=== PATIENT | male | born 1975 | race Caucasian/White ===

== ENCOUNTER 2017-09-05 18:01 | Inpatient (IN) | payer OTHER ==
[2017-09-05 18:46] VITALS: BMI 23.8
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
[2017-09-05] MEDS ORDERED: P-EPHED 60MG/TRIPROLIDI 2.5MG TABLET PO PRN (20:14)
[2017-09-05] MEDS ORDERED: LOPERAMIDE HCL 2 MG CAPSULE PO PRN (20:14)
[2017-09-05] MEDS ORDERED: NICOTINE POLACRILEX 2 MG GUM BUC PRN (20:14)
[2017-09-05] MEDS ORDERED: MAGNESIUM CITRATE 300 ML BOTTLE PO PRN (20:14)
[2017-09-05] MEDS ORDERED: ACETAMINOPHEN 325 MG TABLET (FP) PO PRN (20:14)
[2017-09-05] MEDS ORDERED: MAG HYDROX/AL HYDROX/SIMETH 30 ML UNIT-DOSE CUP PO PRN (20:14)
[2017-09-05] MEDS ORDERED: hydrOXYzine PAMOATE 50 MG CAPSULE (FP) PO PRN (20:14)
[2017-09-05] MEDS ORDERED: IBUPROFEN 400 MG TABLET (FP) PO PRN (20:14)
[2017-09-05] MEDS ORDERED: guaiFENesin/D-METHORPHAN HB 10 ML UNIT-DOSE CUPS PO PRN (20:14)
[2017-09-05] MEDS ORDERED: MAGNESIUM HYDROX 2400MG/30ML ORAL SUSPENSION 30 ML CUP PO PRN (20:14)
[2017-09-05] MEDS ORDERED: MENTHOL/PHENOL 1 EACH UD MM PRN (20:14)
[2017-09-05] MEDS ORDERED: chlordiazePOXIDE HCL 25 MG CAPSULE PO ONE (20:45)
[2017-09-05] MEDS ORDERED: METHADONE HCL 10 MG TABLET (FOR DETOX USE ONLY) PO ONE ×2 (20:45→23:00)
[2017-09-05] MEDS ORDERED: MELATONIN 5 MG TABLETS PO PRN (22:00)
[2017-09-06] MEDS ORDERED: METHADONE HCL 10 MG TABLET (FOR DETOX USE ONLY) PO ONE ×3 (01:27→23:00)
[2017-09-06] MEDS: THIAMINE HCL 100 MG TABLET (FP) PO SCH ×2 (01:36→22:05)
[2017-09-06] MEDS: levETIRAcetam 500 MG TABLET (FP) PO SCH ×3 (01:36→22:06)
[2017-09-06] MEDS: chlordiazePOXIDE HCL 25 MG CAPSULE PO SCH ×5 (01:37→22:06)
[2017-09-06] MEDS: chlordiazePOXIDE HCL 25 MG CAPSULE PO PRN (01:44)
--- NOTE | 2017-09-06 09:38 | EKG ---
Test Reason : Blood Pressure : / mmHG Vent. Rate : 057 BPM Atrial Rate : 057 BPM P-R Int : 152 ms QRS Dur : 094 ms QT Int : 480 ms P-R-T Axes : 071 086 065 degrees QTc Int : 467 ms SINUS BRADYCARDIA WITH SINUS ARRHYTHMIA OTHERWISE NORMAL ECG NO PREVIOUS ECGS AVAILABLE Confirmed by MACKENZIE MEDRANO, LISANDRO ([id number]) on 09/06/2017 9:38:34 AM Referred By: Confirmed By:LISANDRO MANN MD
[2017-09-06 09:57] LABS: CHLORIDE 105 mmol/L (98-107); POTASSIUM 4.3 mmol/L (3.5-5.1); SODIUM 142 mmol/L (136-145)
[2017-09-06] MEDS ORDERED: METHADONE HCL 10 MG TABLET (FOR DETOX USE ONLY) PO SCH (10:00)
[2017-09-06 10:16] LABS: HEMATOCRIT 38.3 % (35.4-49); HEMOGLOBIN 13.2 GM/dL (11.7-16.9); MCH 31.2 pg (25.7-33.7); MCHC 34.5 g/dl (32.0-35.9); MEAN CELL VOLUME 90.6 fl (80-96); PLATELET COUNT 195 K/MM3 (134-434); RBC 4.22 M/mm3 (4.00-5.60); RDW 12.7 % (11.9-15.9); WHITE BLOOD COUNT 4.4 K/mm3 (4.0-10.0)
[2017-09-06] MEDS: PRENATAL VITAMINS W/ FOLIC ACID TABLET (FP) PO SCH (10:20)
[2017-09-06] MEDS: NICOTINE 14 MG/24 HOURS TOPICAL PATCH TD SCH (10:21)
--- NOTE | 2017-09-06 10:47 | PN ---
S CIWA - CIWA Score Nausea/Vomitin-No Nausea/No Vomiting Muscle Tremors: 4-Moderate,w/Arms Extend Anxiety: 4-Mod. Anxious/Guarded Agitation: 4-Moderately Restless Paroxysmal Sweats: 1-Minimal Palms Moist Orientation: 0-Oriented Tacttile Disturbances: 0-None Auditory Disturbances: 0-None Visual Disturbances: 0-None Headache: 0-None Present CIWA-Ar Total Score: 13 [facility]HS COWS - Scale Resting Pulse: 0= [place] 80 or Below Sweatin= Chills/Flushing Restless Observation: 3= Extraneous Movement Pupil Size: 2= Moderately Dilated Bone or Joint Aches: 4=Acute Joint/Muscle Pain Runny Nose/ Eye Tearin= None GI Upset > 30mins: 0= None Tremor Observation of Outstretched Hands: 1= Tremor [place], Not Seen Yawning Observation: 1= 1-2x During Session Anxiety or Irritability: 2=Irritable/Anxious Goose Flesh Skin: 0=Smooth Skin COWS Score: 14 S Progress Note (SOAP) Subjective: ANXIETY,CHILLS,SWEATS,FATIGUE AND SLEEPY. Objective: 09/06/17 10:43 Vital Signs 09/06/17 09/06/17 09/06/17 03:30 06:30 06:37 Temperature 98.0 F Pulse Rate 47 L Respiratory 18 18 18 Rate Blood Pressure 106/57 09/06/17 09:17 Temperature 96.3 F L Pulse Rate 54 L Respiratory 18 Rate Blood Pressure 112/68 Laboratory Tests 09/06/17 09/06/17 06:40 06:40 WBC 4.4 D RBC 4.22 Hgb 13.2 D Hct 38.3 D MCV 90.6 MCH 31.2 MCHC 34.5 RDW 12.7 Plt Count 195 MPV 8.0 D Sodium 142 Potassium 4.3 Chloride 105 OTHER LABS PENDING Assessment: 09/06/17 10:43 WITHDRAWAL SX Plan: CONTINUE DETOX INCREASE PO FLUIDS.
[2017-09-06 10:53] LABS: ALK PHOS 74 U/L (45-117); ANION GAP 8 (8-16); BILIRUBIN,TOTAL 0.3 mg/dL (0.2-1.0); BLOOD UREA NITROGEN 16 mg/dL (7-18); CALCIUM 8.4 mg/dL (8.5-10.1); CO2 29 mmol/L (21-32); CREATININE 0.9 mg/dL (0.7-1.3); GLUCOSE,RANDOM 92 mg/dL (74-106); SGOT/AST 24 U/L (15-37); SGPT/ALT 58 U/L (12-78); TOT PROT 6.1 g/dl (6.4-8.2)
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
[2017-09-06 14:31] LABS: URINE APPEARANCE CLEAR; URINE BILIRUBIN NEGATIVE (<2.0 mg/dL); URINE COLOR YELLOW; URINE GLUCOSE (UA) NEGATIVE (NEGATIVE); URINE KETONE NEGATIVE (NEGATIVE); URINE LEUK ESTERASE NEGATIVE (NEGATIVE); URINE NITRITE NEGATIVE (NEGATIVE); URINE PROTEIN NEGATIVE (NEGATIVE); URINE UROBILINOGEN 4.0 E.U/dl mg/dL (0.2-1.0)
[2017-09-06] MEDS: QUEtiapine FUMARATE 50 MG TABLET PO SCH (22:06)
[2017-09-07] MEDS: chlordiazePOXIDE HCL 25 MG CAPSULE PO SCH ×3 (09:52→17:55)
[2017-09-07] MEDS ORDERED: METHADONE HCL 10 MG TABLET (FOR DETOX USE ONLY) PO ONE (10:00)
[2017-09-07] MEDS ORDERED: METHADONE HCL 5 MG TABLET (FOR DETOX USE ONLY) PO SCH (10:00)
[2017-09-07] MEDS: levETIRAcetam 500 MG TABLET (FP) PO SCH ×2 (10:12→22:14)
[2017-09-07] MEDS: PRENATAL VITAMINS W/ FOLIC ACID TABLET (FP) PO SCH (10:12)
[2017-09-07] MEDS: NICOTINE 14 MG/24 HOURS TOPICAL PATCH TD SCH (10:14)
--- NOTE | 2017-09-07 10:57 | PN ---
[facility] CIWA - CIWA Score Nausea/Vomitin-No Nausea/No Vomiting Muscle Tremors: 3 Anxiety: 4-Mod. Anxious/Guarded Agitation: 4-Moderately Restless Paroxysmal Sweats: 1-Minimal Palms Moist Orientation: 0-Oriented Tacttile Disturbances: 0-None Auditory Disturbances: 0-None Visual Disturbances: 0-None Headache: 0-None Present CIWA-Ar Total Score: 12 S COWS - Scale Resting Pulse: 0= [place] 80 or Below Sweatin= Chills/Flushing Restless Observation: 3= Extraneous Movement Pupil Size: 2= Moderately Dilated Bone or Joint Aches: 1= Mild Discomfort Runny Nose/ Eye Tearin= None GI Upset > 30mins: 0= None Tremor Observation of Outstretched Hands: 1= Tremor [place], Not Seen Yawning Observation: 1= 1-2x During Session Anxiety or Irritability: 2=Irritable/Anxious Goose Flesh Skin: 0=Smooth Skin COWS Score: 11 S Progress Note (SOAP) Subjective: ANXIETY,HOT/COLD FLASHES. Objective: 09/07/17 10:56 Vital Signs 09/07/17 09:17 Temperature 98.9 F Pulse Rate 54 L Respiratory 18 Rate Blood Pressure 109/64 Laboratory Tests 09/06/17 09/06/17 09/06/17 06:40 06:40 06:40 WBC 4.4 D RBC 4.22 Hgb 13.2 D Hct 38.3 D MCV 90.6 MCH 31.2 MCHC 34.5 RDW 12.7 Plt Count 195 MPV 8.0 D Sodium 142 Potassium 4.3 Chloride 105 Carbon Dioxide 29 Anion Gap 8 BUN 16 Creatinine 0.9 Creat Clearance w eGFR > 60 Random Glucose 92 Calcium 8.4 L Total Bilirubin 0.3 D AST 24 ALT 58 D Alkaline Phosphatase 74 Total Protein 6.1 L Albumin 3.0 L Urine Color Urine Appearance Urine pH Ur Specific [place] Urine Protein Urine Glucose (UA) Urine Ketones Urine Blood Urine Nitrite Urine Bilirubin Urine Urobilinogen Ur Leukocyte Esterase RPR Titer Nonreactive HIV 1&2 Antibody Screen HIV P24 Antigen 09/06/17 09/06/17 09:00 13:20 WBC RBC Hgb Hct MCV MCH MCHC RDW Plt Count MPV Sodium Potassium Chloride Carbon Dioxide Anion Gap BUN Creatinine Creat Clearance w eGFR Random Glucose Calcium Total Bilirubin AST ALT Alkaline Phosphatase Total Protein Albumin Urine Color Yellow Urine Appearance Clear Urine pH 7.0 Ur Specific [place] 1.024 Urine Protein Negative Urine Glucose (UA) Negative Urine Ketones Negative Urine Blood Negative Urine Nitrite Negative Urine Bilirubin Negative Urine Urobilinogen 4.0 e.u/dl Ur Leukocyte Esterase Negative RPR Titer HIV 1&2 Antibody Screen Negative HIV P24 Antigen Negative Assessment: 09/07/17 10:56 WITHDRAWAL SX Plan: CONTINUE DETOX INCREASE PO FLUIDS.
[2017-09-07] MEDS: THIAMINE HCL 100 MG TABLET (FP) PO SCH (22:13)
[2017-09-07] MEDS: chlordiazePOXIDE 5 MG CAPSULE PO SCH (22:13)
[2017-09-07] MEDS: QUEtiapine FUMARATE 50 MG TABLET PO SCH (22:14)
[2017-09-08] MEDS: chlordiazePOXIDE 5 MG CAPSULE PO SCH ×3 (05:41→17:16)
[2017-09-08] MEDS ORDERED: METHADONE HCL 5 MG TABLET (FOR DETOX USE ONLY) PO ONE (10:00)
[2017-09-08] MEDS: PRENATAL VITAMINS W/ FOLIC ACID TABLET (FP) PO SCH (10:31)
[2017-09-08] MEDS: levETIRAcetam 500 MG TABLET (FP) PO SCH ×2 (10:32→21:55)
[2017-09-08] MEDS: NICOTINE 14 MG/24 HOURS TOPICAL PATCH TD SCH (10:33)
--- NOTE | 2017-09-08 13:51 | PN ---
[facility] Progress Note (SOAP) Subjective: Body Aches, Anxious, Fatigue. Objective: PATIENT A & O X 2 (UNCERTAIN ABOUT CURRENT DAY / DATE). PATIENT OBSERVED AMBULATING ON UNIT. NO ACUTE DISTRESS. 09/08/17 13:49 Vital Signs Temperature 97.6 F 09/08/17 09:25 Pulse Rate 63 09/08/17 09:25 Respiratory Rate 16 09/08/17 09:25 Blood Pressure 110/63 09/08/17 09:25 O2 Sat by Pulse Oximetry (%) Laboratory Tests 09/06/17 09/06/17 09/06/17 06:40 06:40 06:40 WBC 4.4 D RBC 4.22 Hgb 13.2 D Hct 38.3 D MCV 90.6 MCH 31.2 MCHC 34.5 RDW 12.7 Plt Count 195 MPV 8.0 D Sodium 142 Potassium 4.3 Chloride 105 Carbon Dioxide 29 Anion Gap 8 BUN 16 Creatinine 0.9 Creat Clearance w eGFR > 60 Random Glucose 92 Calcium 8.4 L Total Bilirubin 0.3 D AST 24 ALT 58 D Alkaline Phosphatase 74 Total Protein 6.1 L Albumin 3.0 L Urine Color Urine Appearance Urine pH Ur Specific [place] Urine Protein Urine Glucose (UA) Urine Ketones Urine Blood Urine Nitrite Urine Bilirubin Urine Urobilinogen Ur Leukocyte Esterase RPR Titer Nonreactive HIV 1&2 Antibody Screen HIV P24 Antigen 09/06/17 09/06/17 09:00 13:20 WBC RBC Hgb Hct MCV MCH MCHC RDW Plt Count MPV Sodium Potassium Chloride Carbon Dioxide Anion Gap BUN Creatinine Creat Clearance w eGFR Random Glucose Calcium Total Bilirubin AST ALT Alkaline Phosphatase Total Protein Albumin Urine Color Yellow Urine Appearance Clear Urine pH 7.0 Ur Specific [place] 1.024 Urine Protein Negative Urine Glucose (UA) Negative Urine Ketones Negative Urine Blood Negative Urine Nitrite Negative Urine Bilirubin Negative Urine Urobilinogen 4.0 e.u/dl Ur Leukocyte Esterase Negative RPR Titer HIV 1&2 Antibody Screen Negative HIV P24 Antigen Negative LABS NOTED. Assessment: 09/08/17 13:49 WITHDRAWAL SYMPTOMS. Plan: CONTINUE DETOX. CONTINUE DAILY PO FLUID INTAKE.
[2017-09-08] MEDS: chlordiazePOXIDE HCL 25 MG CAPSULE PO PRN (14:12)
--- NOTE | 2017-09-08 18:07 | PN ---
[facility] Progress Note Note: Psychiatry Attending's note : Approached by patient. Reason : complaint of insomnia. " I would like to be on 100 mg of seroquel." Mr Thompson reports dose of 50 mg as not effective. Endorses history of good response on 100 mg at bedtime. Intervention : Sleep hygiene discussed with the patient. Seroquel is raised to 100 mg po hs. Side effects/benefits revisited. Patient agrees with careplan. Stable mental status.
[2017-09-08] MEDS: chlordiazePOXIDE HCL 10 MG CAPSULE PO SCH (21:59)
[2017-09-08] MEDS ORDERED: QUEtiapine FUMARATE 100 MG TABLET (FP) PO SCH (22:00)
[2017-09-08] MEDS: THIAMINE HCL 100 MG TABLET (FP) PO SCH (22:43)
[2017-09-09] MEDS: chlordiazePOXIDE HCL 10 MG CAPSULE PO SCH ×2 (06:45→10:24)
[2017-09-09 09:37] VITALS: BP 113/80; PULSE 85; TEMP 97
[2017-09-09] MEDS ORDERED: METHADONE HCL 10 MG TABLET (FOR DETOX USE ONLY) PO SCH (10:00)
[2017-09-09] MEDS ORDERED: METHADONE HCL 5 MG TABLET (FOR DETOX USE ONLY) PO ONE (10:00)
[2017-09-09] MEDS: PRENATAL VITAMINS W/ FOLIC ACID TABLET (FP) PO SCH (10:22)
[2017-09-09] MEDS: levETIRAcetam 500 MG TABLET (FP) PO SCH (10:23)
[2017-09-09] MEDS: NICOTINE 14 MG/24 HOURS TOPICAL PATCH TD SCH (10:24)
--- NOTE | 2017-09-09 14:19 | PN ---
[facility] Progress Note (SOAP) Subjective: Fatigue, Anxious, Body Aches. Objective: PATIENT A & O X 3, OBSERVED AMBULATING ON UNIT. NO ACUTE DISTRESS. 09/09/17 14:18 Vital Signs Temperature 97 F L 09/09/17 09:36 Pulse Rate 85 09/09/17 09:36 Respiratory Rate 18 09/09/17 09:36 Blood Pressure 113/80 09/09/17 09:36 O2 Sat by Pulse Oximetry (%) Laboratory Tests 09/06/17 09/06/17 09/06/17 06:40 06:40 06:40 WBC 4.4 D RBC 4.22 Hgb 13.2 D Hct 38.3 D MCV 90.6 MCH 31.2 MCHC 34.5 RDW 12.7 Plt Count 195 MPV 8.0 D Sodium 142 Potassium 4.3 Chloride 105 Carbon Dioxide 29 Anion Gap 8 BUN 16 Creatinine 0.9 Creat Clearance w eGFR > 60 Random Glucose 92 Calcium 8.4 L Total Bilirubin 0.3 D AST 24 ALT 58 D Alkaline Phosphatase 74 Total Protein 6.1 L Albumin 3.0 L Urine Color Urine Appearance Urine pH Ur Specific [place] Urine Protein Urine Glucose (UA) Urine Ketones Urine Blood Urine Nitrite Urine Bilirubin Urine Urobilinogen Ur Leukocyte Esterase Levetiracetam RPR Titer Nonreactive HIV 1&2 Antibody Screen HIV P24 Antigen 09/06/17 09/06/17 09/06/17 08:20 09:00 13:20 WBC RBC Hgb Hct MCV MCH MCHC RDW Plt Count MPV Sodium Potassium Chloride Carbon Dioxide Anion Gap BUN Creatinine Creat Clearance w eGFR Random Glucose Calcium Total Bilirubin AST ALT Alkaline Phosphatase Total Protein Albumin Urine Color Yellow Urine Appearance Clear Urine pH 7.0 Ur Specific [place] 1.024 Urine Protein Negative Urine Glucose (UA) Negative Urine Ketones Negative Urine Blood Negative Urine Nitrite Negative Urine Bilirubin Negative Urine Urobilinogen 4.0 e.u/dl Ur Leukocyte Esterase Negative Levetiracetam None detected RPR Titer HIV 1&2 Antibody Screen Negative HIV P24 Antigen Negative LABS NOTED. Assessment: 09/09/17 14:18 WITHDRAWAL SYMPTOMS. Plan: CONTINUE DETOX.
--- NOTE | 2017-09-09 14:23 | DS ---
[facility] Detox Discharge Summary Admission Date: 09/05/17 Discharge Date: 09/09/17 - History Present History: Alcohol Dependence, Cocaine Dependence, Opioid Dependence Additional Comments: PATIENT DOES NOT WISH TO STAY TO COMPLETE DETOX REGIMEN. RISKS OF LEAVING DETOX UNIT AGAINST MEDICAL ADVICE AND PRIOR TO COMPLETION OF DETOX REGIMEN EXPLAINED TO PATIENT. PATIENT ADVISED TO GO IMMEDIATELY TO NEAREST ER SHOULD ANY INTOLERABLE DETOX SYMPTOMS DEVELOP AT ANY TIME. PATIENT LEFT DETOX UNIT IN STABLE MEDICAL CONDITION. Pertinent Past History: Depression, Nicotine Dependence, Hep C, History of Seizures, History of Suboxone Maintenance Therapy, Weight Loss, Dehydration, PTSD, Insomnia. - Physical Exam Results Vital Signs: Vital Signs Temperature 97 F L 09/09/17 09:36 Pulse Rate 85 09/09/17 09:36 Respiratory Rate 18 09/09/17 09:36 Blood Pressure 113/80 09/09/17 09:36 O2 Sat by Pulse Oximetry (%) Pertinent Admission Physical Exam Findings: WITHDRAWAL SYMPTOMS. Laboratory Tests 09/06/17 09/06/17 09/06/17 06:40 06:40 06:40 WBC 4.4 D RBC 4.22 Hgb 13.2 D Hct 38.3 D MCV 90.6 MCH 31.2 MCHC 34.5 RDW 12.7 Plt Count 195 MPV 8.0 D Sodium 142 Potassium 4.3 Chloride 105 Carbon Dioxide 29 Anion Gap 8 BUN 16 Creatinine 0.9 Creat Clearance w eGFR > 60 Random Glucose 92 Calcium 8.4 L Total Bilirubin 0.3 D AST 24 ALT 58 D Alkaline Phosphatase 74 Total Protein 6.1 L Albumin 3.0 L Urine Color Urine Appearance Urine pH Ur Specific [place] Urine Protein Urine Glucose (UA) Urine Ketones Urine Blood Urine Nitrite Urine Bilirubin Urine Urobilinogen Ur Leukocyte Esterase Levetiracetam RPR Titer Nonreactive HIV 1&2 Antibody Screen HIV P24 Antigen 09/06/17 09/06/17 09/06/17 08:20 09:00 13:20 WBC RBC Hgb Hct MCV MCH MCHC RDW Plt Count MPV Sodium Potassium Chloride Carbon Dioxide Anion Gap BUN Creatinine Creat Clearance w eGFR Random Glucose Calcium Total Bilirubin AST ALT Alkaline Phosphatase Total Protein Albumin Urine Color Yellow Urine Appearance Clear Urine pH 7.0 Ur Specific [place] 1.024 Urine Protein Negative Urine Glucose (UA) Negative Urine Ketones Negative Urine Blood Negative Urine Nitrite Negative Urine Bilirubin Negative Urine Urobilinogen 4.0 e.u/dl Ur Leukocyte Esterase Negative Levetiracetam None detected RPR Titer HIV 1&2 Antibody Screen Negative HIV P24 Antigen Negative LABS NOTED. - Treatment Hospital Course: Detoxed Safely - Medication Discharge Medications: Ambulatory Orders Quetiapine Fumarate [Seroquel -] 50 mg PO HS 09/05/17 levETIRAcetam [Keppra -] 500 mg PO BID 09/05/17 Quetiapine Fumarate [Seroquel -] 50 mg PO HS #30 tablet 09/06/17 - Diagnosis (1) Alcohol dependence with withdrawal Status: Acute Qualifiers: Complication of substance-induced condition: uncomplicated Qualified Code(s ): F10.230 - Alcohol dependence with withdrawal, uncomplicated (2) Cocaine dependence Status: Acute Qualifiers: Substance use status: uncomplicated Qualified Code(s): F14.20 - Cocaine dependence, uncomplicated (3) Dehydration Status: Acute (4) Nicotine dependence Status: Acute Qualifiers: Nicotine product type: cigarettes Substance use status: in withdrawal Qualified Code(s): F17.213 - Nicotine dependence, cigarettes, with withdrawal (5) Opioid dependence with withdrawal Status: Acute (6) HEP-C Status: Chronic (7) IV drug user Status: Chronic (8) Weight loss Status: Acute (9) Insomnia Status: Acute Qualifiers: Insomnia type: unspecified Qualified Code(s): G47.00 - Insomnia, unspecified (10) Post traumatic stress disorder (PTSD) Status: Chronic - AMA Did Patient Leave Against Medical Advice: Yes (PATIENT DID NOT WISH TO REMAIN TO COMPLETE DETOX REGIMEN.)
[2017-09-10] MEDS ORDERED: METHADONE HCL 5 MG TABLET (FOR DETOX USE ONLY) PO SCH (06:00)
[2017-09-10] MEDS ORDERED: METHADONE HCL 10 MG TABLET (FOR DETOX USE ONLY) PO ONE (10:00)
[2017-09-11] MEDS ORDERED: METHADONE HCL 5 MG TABLET (FOR DETOX USE ONLY) PO ONE (06:00)
== END 2017-09-09 11:17 | disposition left against medical advice (07) | DRG 770 ==
LOC: YASAS 18:01 → Y3N 20:37
PROVIDERS: ADMIT Surgery; ATTEND Surgery
PROC: HZ2ZZZZ Detoxification Services for Substance Abuse Treatment (ICD-10-PCS; principal; 2017-09-08)
DX: F11.23 Opioid dependence with withdrawal (principal); F10.230 Alcohol dependence with withdrawal, uncomplicated; F14.20 Cocaine dependence, uncomplicated; F17.213 Nicotine dependence, cigarettes, with withdrawal; F43.10 Post-traumatic stress disorder, unspecified; E86.0 Dehydration; B18.2 Chronic viral hepatitis C; G47.00 Insomnia, unspecified; Z86.69 Personal history of other diseases of the nervous system and sense organs; Z87.898 Personal history of other specified conditions; Z59.0 Homelessness
CPT/HCPCS: 36415; 71046-TC-FY; 80053; 81003; 85027; 86593; 87389; 93005; 93010

== ENCOUNTER 2019-03-23 10:22 | Inpatient (IN) | payer OTHER ==
[2019-03-23 10:55] VITALS: BMI 25.4
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
[2019-03-23] MEDS ORDERED: METHOCARBAMOL 500 MG TABLET PO PRN (11:45)
[2019-03-23] MEDS ORDERED: MAGNESIUM HYDROX 2400MG/30ML ORAL SUSPENSION 30 ML CUP PO PRN (11:45)
[2019-03-23] MEDS ORDERED: BISMUTH SUBSALICYLATE 524 MG/30 ML UD PO PRN (11:45)
[2019-03-23] MEDS ORDERED: cloNIDine HCL 0.1 MG TABLET PO PRN (11:45)
[2019-03-23] MEDS ORDERED: MAG HYDROX/AL HYDROX/SIMETH 30 ML UNIT-DOSE CUP PO PRN (11:45)
[2019-03-23] MEDS ORDERED: MENTHOL/PHENOL 1 EACH UD MM PRN (11:45)
[2019-03-23] MEDS ORDERED: NICOTINE POLACRILEX 4 MG GUM BUC PRN (11:45)
[2019-03-23] MEDS ORDERED: ONDANSETRON *ODT* 4 MG TABLET SL PRN (11:45)
[2019-03-23] MEDS ORDERED: MAGNESIUM CITRATE 300 ML BOTTLE PO PRN (11:45)
[2019-03-23] MEDS ORDERED: clonazePAM 0.5 MG TABLET PO PRN (11:45)
[2019-03-23] MEDS ORDERED: METHADONE HCL 10 MG TABLET (FOR DETOX USE ONLY) PO ONE (11:45)
[2019-03-23] MEDS ORDERED: ACETAMINOPHEN 325 MG TABLET (FP) PO PRN ×2 (11:45)
[2019-03-23] MEDS ORDERED: hydrOXYzine PAMOATE 25 MG CAPSULE (FP) PO PRN (11:45)
[2019-03-23] MEDS ORDERED: IBUPROFEN 400 MG TABLET (FP) PO PRN (11:45)
[2019-03-23] MEDS ORDERED: NALOXONE HCL 0.4 MG/ML VIAL IM PRN (11:45)
--- NOTE | 2019-03-23 14:40 | EKG ---
Test Reason : Blood Pressure : / mmHG Vent. Rate : 061 BPM Atrial Rate : 061 BPM P-R Int : 168 ms QRS Dur : 086 ms QT Int : 436 ms P-R-T Axes : 047 079 047 degrees QTc Int : 438 ms NORMAL SINUS RHYTHM NORMAL ECG WHEN COMPARED WITH ECG OF 06-SEP-2017 01:24, NO SIGNIFICANT CHANGE WAS FOUND Confirmed by MD RADHA, SABINO ([id number]) on 03/23/2019 2:39:47 PM Referred By: Confirmed By:SABINO GARCIA MD
[2019-03-23] MEDS ORDERED: MELATONIN 5 MG TABLETS PO PRN (22:00)
[2019-03-23] MEDS ORDERED: traZODone HCL 50 MG TABLET (FP) PO SCH ×2 (22:00)
[2019-03-23] MEDS: THIAMINE HCL 100 MG TABLET (FP) PO SCH (22:18)
[2019-03-24 09:21] LABS: HEMATOCRIT 43.5 % (35.4-49); HEMOGLOBIN 14.8 GM/dL (11.7-16.9); MCHC 34.1 g/dl (32.0-35.9); MEAN PLT VOLUME 8.6 fl (7.5-11.1); PLATELET COUNT 140 K/MM3 (134-434); RBC 5.12 M/mm3 (4.00-5.60); RDW 13.9 % (11.9-15.9); WHITE BLOOD COUNT 2.9 K/mm3 (4.0-10.0)
[2019-03-24] MEDS ORDERED: METHADONE HCL 5 MG TABLET (FOR DETOX USE ONLY) ONE (09:25)
[2019-03-24] MEDS ORDERED: METHADONE HCL 10 MG TABLET (FOR DETOX USE ONLY) ONE (09:25)
[2019-03-24 09:35] LABS: ALBUMIN 3.9 g/dl (3.4-5.0); BILIRUBIN,TOTAL 0.6 mg/dL (0.2-1); BLOOD UREA NITROGEN 19.9 mg/dL (7-18); CALCIUM 9.2 mg/dL (8.5-10.1); CREATININE 1.1 mg/dL (0.55-1.3); POTASSIUM 4.2 mmol/L (3.5-5.1); TOT PROT 6.7 g/dl (6.4-8.2)
[2019-03-24] MEDS ORDERED: METHADONE (DETOX) 20 MG, METHADONE (DETOX) 5 MG PO ONE (10:00)
[2019-03-24] MEDS: PRENATAL VITAMINS W/ FOLIC ACID TABLET (FP) PO SCH (10:13)
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
[2019-03-24] MEDS: THIAMINE HCL 100 MG TABLET (FP) PO SCH (22:09)
[2019-03-24] MEDS: QUEtiapine FUMARATE 50 MG TABLET PO SCH (22:09)
[2019-03-25] MEDS ORDERED: diazePAM 5 MG TABLET PO PRN (09:23)
--- NOTE | 2019-03-25 09:30 | PN ---
S CIWA - CIWA Score Nausea/Vomitin Muscle Tremors: 2 Anxiety: 2 Agitation: 2 Paroxysmal Sweats: 1-Minimal Palms Moist Orientation: 0-Oriented Tacttile Disturbances: 1-Very Mild Itch/Numbness Auditory Disturbances: 0-None Visual Disturbances: 0-None Headache: 1-Very Mild CIWA-Ar Total Score: 11 [facility] COWS - Scale Resting Pulse: 0= [place] 80 or Below Sweatin= No chills or Flushing Restless Observation: 1= Difficult to Sit Still Pupil Size: 1= Pupils >than Normal Bone or Joint Aches: 2= Severe Diffuse Aches Runny Nose/ Eye Tearin= Runny Nose/Eyes GI Upset > 30mins: 2= Nausea/Diarrhea Tremor Observation of Outstretched Hands: 1= Tremor [place], Not Seen Yawning Observation: 1= 1-2x During Session Anxiety or Irritability: 2=Irritable/Anxious Goose Flesh Skin: 0=Smooth Skin COWS Score: 12 S Progress Note (SOAP) Subjective: alert,irritable,anxious,interrupted sleep,tremor,pain in the body and back Objective: 03/25/19 09:26 Vital Signs Temperature 98.1 F 03/25/19 09:04 Pulse Rate 70 03/25/19 09:04 Respiratory Rate 18 03/25/19 09:04 Blood Pressure 117/64 03/25/19 09:04 O2 Sat by Pulse Oximetry (%) Laboratory Last Values WBC 2.9 K/mm3 (4.0-10.0) L 03/24/19 07:20 RBC 5.12 M/mm3 (4.00-5.60) 03/24/19 07:20 Hgb 14.8 GM/dL (11.7-16.9) 03/24/19 07:20 Hct 43.5 % (35.4-49) 03/24/19 07:20 MCV 85.0 fl (80-96) 03/24/19 07:20 MCH 29.0 pg (25.7-33.7) 03/24/19 07:20 MCHC 34.1 g/dl (32.0-35.9) 03/24/19 07:20 RDW 13.9 % (11.9-15.9) 03/24/19 07:20 Plt Count 140 K/MM3 (134-434) D 03/24/19 07:20 MPV 8.6 fl (7.5-11.1) 03/24/19 07:20 Sodium 139 mmol/L (136-145) 03/24/19 07:20 Potassium 4.2 mmol/L (3.5-5.1) 03/24/19 07:20 Chloride 105 mmol/L (98-107) 03/24/19 07:20 Carbon Dioxide 32 mmol/L (21-32) 03/24/19 07:20 Anion Gap 2 MMOL/L (8-16) L 03/24/19 07:20 BUN 19.9 mg/dL (7-18) H 03/24/19 07:20 Creatinine 1.1 mg/dL (0.55-1.3) 03/24/19 07:20 Est GFR (CKD-EPI)AfAm 96.13 03/24/19 07:20 Est GFR (CKD-EPI)NonAf 82.94 03/24/19 07:20 Random Glucose 89 mg/dL (74-106) 03/24/19 07:20 Calcium 9.2 mg/dL (8.5-10.1) 03/24/19 07:20 Total Bilirubin 0.6 mg/dL (0.2-1) 03/24/19 07:20 AST 31 U/L (15-37) 03/24/19 07:20 ALT 59 U/L (13-61) 03/24/19 07:20 Alkaline Phosphatase 74 U/L (45-117) 03/24/19 07:20 Total Protein 6.7 g/dl (6.4-8.2) 03/24/19 07:20 Albumin 3.9 g/dl (3.4-5.0) 03/24/19 07:20 RPR Titer Nonreactive (NONREACTIVE) 03/24/19 07:20 Assessment: 03/25/19 09:28 withdrawal symptom Plan: continue detox methadone to add valium regimen,leukopenioa wbc 2900,bun 19.9, encourage oral fluid,repeat cbc,bmp in am
[2019-03-25] MEDS ORDERED: METHADONE HCL 10 MG TABLET (FOR DETOX USE ONLY) PO ONE (10:00)
[2019-03-25] MEDS: PRENATAL VITAMINS W/ FOLIC ACID TABLET (FP) PO SCH (10:26)
[2019-03-25] MEDS: diazePAM 5 MG TABLET PO SCH ×2 (14:59→22:14)
[2019-03-25] MEDS: THIAMINE HCL 100 MG TABLET (FP) PO SCH (22:14)
[2019-03-25] MEDS: QUEtiapine FUMARATE 50 MG TABLET PO SCH (22:14)
[2019-03-26] MEDS: diazePAM 5 MG TABLET PO SCH ×3 (07:11→21:32)
[2019-03-26] MEDS ORDERED: METHADONE HCL 10 MG TABLET (FOR DETOX USE ONLY) ONE (09:07)
[2019-03-26] MEDS ORDERED: METHADONE HCL 5 MG TABLET (FOR DETOX USE ONLY) ONE (09:07)
--- NOTE | 2019-03-26 09:50 | PN ---
[facility] CIWA - CIWA Score Nausea/Vomitin-No Nausea/No Vomiting Muscle Tremors: None Anxiety: 3 Agitation: 2 Paroxysmal Sweats: 3 Orientation: 0-Oriented Tacttile Disturbances: 0-None Auditory Disturbances: 0-None Visual Disturbances: 0-None Headache: 2-Mild CIWA-Ar Total Score: 10 S COWS - Scale Resting Pulse: 0= [place] 80 or Below Sweatin= Beads of Sweat on Face Restless Observation: 1= Difficult to Sit Still Pupil Size: 0= Normal to Room Light Bone or Joint Aches: 2= Severe Diffuse Aches Runny Nose/ Eye Tearin= None GI Upset > 30mins: 0= None Tremor Observation of Outstretched Hands: 0= None Yawning Observation: 1= 1-2x During Session Anxiety or Irritability: 2=Irritable/Anxious Goose Flesh Skin: 0=Smooth Skin COWS Score: 9 [facility] Progress Note (SOAP) Subjective: c/o sweats, anxiety, headache, muscle aches, and irritability. Objective: 03/26/19 09:49 Vital Signs 03/26/19 03/26/19 03/26/19 03:30 06:28 09:14 Temperature 97.3 F L 97.2 F L Pulse Rate 49 L 59 L Respiratory 18 18 18 Rate Blood Pressure 104/56 L 120/70 Laboratory Last Values WBC 2.9 K/mm3 (4.0-10.0) L 03/24/19 07:20 RBC 5.12 M/mm3 (4.00-5.60) 03/24/19 07:20 Hgb 14.8 GM/dL (11.7-16.9) 03/24/19 07:20 Hct 43.5 % (35.4-49) 03/24/19 07:20 MCV 85.0 fl (80-96) 03/24/19 07:20 MCH 29.0 pg (25.7-33.7) 03/24/19 07:20 MCHC 34.1 g/dl (32.0-35.9) 03/24/19 07:20 RDW 13.9 % (11.9-15.9) 03/24/19 07:20 Plt Count 140 K/MM3 (134-434) D 03/24/19 07:20 MPV 8.6 fl (7.5-11.1) 03/24/19 07:20 Sodium 139 mmol/L (136-145) 03/24/19 07:20 Potassium 4.2 mmol/L (3.5-5.1) 03/24/19 07:20 Chloride 105 mmol/L (98-107) 03/24/19 07:20 Carbon Dioxide 32 mmol/L (21-32) 03/24/19 07:20 Anion Gap 2 MMOL/L (8-16) L 03/24/19 07:20 BUN 19.9 mg/dL (7-18) H 03/24/19 07:20 Creatinine 1.1 mg/dL (0.55-1.3) 03/24/19 07:20 Est GFR (CKD-EPI)AfAm 96.13 03/24/19 07:20 Est GFR (CKD-EPI)NonAf 82.94 03/24/19 07:20 Random Glucose 89 mg/dL (74-106) 03/24/19 07:20 Calcium 9.2 mg/dL (8.5-10.1) 03/24/19 07:20 Total Bilirubin 0.6 mg/dL (0.2-1) 03/24/19 07:20 AST 31 U/L (15-37) 03/24/19 07:20 ALT 59 U/L (13-61) 03/24/19 07:20 Alkaline Phosphatase 74 U/L (45-117) 03/24/19 07:20 Total Protein 6.7 g/dl (6.4-8.2) 03/24/19 07:20 Albumin 3.9 g/dl (3.4-5.0) 03/24/19 07:20 RPR Titer Nonreactive (NONREACTIVE) 03/24/19 07:20 Labs noted. Assessment: 03/26/19 09:50 AOX3, in no respiratory distress. Full ROM, ambulating in the unit. Withdrawal symptoms. Plan: continue detox.
[2019-03-26] MEDS ORDERED: METHADONE (DETOX) 10 MG, METHADONE (DETOX) 5 MG PO ONE (10:00)
[2019-03-26] MEDS: PRENATAL VITAMINS W/ FOLIC ACID TABLET (FP) PO SCH (10:28)
[2019-03-26] MEDS: QUEtiapine FUMARATE 50 MG TABLET PO SCH (21:32)
[2019-03-26] MEDS: THIAMINE HCL 100 MG TABLET (FP) PO SCH (21:32)
[2019-03-27] MEDS: diazePAM 5 MG TABLET PO SCH ×2 (06:21→17:12)
--- NOTE | 2019-03-27 09:45 | PN ---
[facility] CIWA - CIWA Score Nausea/Vomitin-Mild Nausea/No Vomiting Muscle Tremors: 1-None Visible, but [place] Anxiety: 1-Mildly Anxious Agitation: 1-Slight > Activity Paroxysmal Sweats: No Perspiration Orientation: 0-Oriented Tacttile Disturbances: 0-None Auditory Disturbances: 0-None Visual Disturbances: 0-None Headache: 1-Very Mild CIWA-Ar Total Score: 5 S COWS - Scale Resting Pulse: 0= [place] 80 or Below Sweatin= No chills or Flushing Restless Observation: 0= Sits Still Pupil Size: 0= Normal to Room Light Bone or Joint Aches: 1= Mild Discomfort Runny Nose/ Eye Tearin= Nasal Congestion GI Upset > 30mins: 1= Stomach Cramp Tremor Observation of Outstretched Hands: 1= Tremor [place], Not Seen Yawning Observation: 0= None Anxiety or Irritability: 1=Feels Anxious/Irritable Goose Flesh Skin: 0=Smooth Skin COWS Score: 5 [facility] Progress Note (SOAP) Subjective: alert,irritable,anxious,interrupted sleep Objective: 03/27/19 09:44 Vital Signs Temperature 97 F L 03/27/19 06:19 Pulse Rate 52 L 03/27/19 06:19 Respiratory Rate 18 03/27/19 06:19 Blood Pressure 106/54 L 03/27/19 06:19 O2 Sat by Pulse Oximetry (%) Assessment: 03/27/19 09:45 withdrawal symptom Plan: continue detox methadone and valium regimen,discharge in am
[2019-03-27] MEDS ORDERED: METHADONE HCL 10 MG TABLET (FOR DETOX USE ONLY) PO ONE (10:00)
--- NOTE | 2019-03-27 10:02 | PN ---
[facility] Progress Note Note: Patient approached at bedside. He told tech writer:" I'm fine, I'm leaving tomorrow"
[2019-03-27] MEDS: PRENATAL VITAMINS W/ FOLIC ACID TABLET (FP) PO SCH (10:26)
[2019-03-27 14:00] VITALS: BP 134/76; PULSE 62; TEMP 98.1
--- NOTE | 2019-03-27 17:23 | DS ---
[facility] Detox Discharge Summary Admission Date: 03/23/19 Discharge Date: 03/27/19 - History Present History: Alcohol Dependence, Cocaine Dependence, Opioid Dependence - Physical Exam Results Vital Signs: Vital Signs Temperature 98.1 F 03/27/19 13:59 Pulse Rate 62 03/27/19 13:59 Respiratory Rate 20 03/27/19 13:59 Blood Pressure 134/76 03/27/19 13:59 O2 Sat by Pulse Oximetry (%) Pertinent Admission Physical Exam Findings: Patient admitted w/ alcohol and opiate withdrawal symptoms. Laboratory Last Values WBC 2.9 K/mm3 (4.0-10.0) L 03/24/19 07:20 RBC 5.12 M/mm3 (4.00-5.60) 03/24/19 07:20 Hgb 14.8 GM/dL (11.7-16.9) 03/24/19 07:20 Hct 43.5 % (35.4-49) 03/24/19 07:20 MCV 85.0 fl (80-96) 03/24/19 07:20 MCH 29.0 pg (25.7-33.7) 03/24/19 07:20 MCHC 34.1 g/dl (32.0-35.9) 03/24/19 07:20 RDW 13.9 % (11.9-15.9) 03/24/19 07:20 Plt Count 140 K/MM3 (134-434) D 03/24/19 07:20 MPV 8.6 fl (7.5-11.1) 03/24/19 07:20 Sodium 139 mmol/L (136-145) 03/24/19 07:20 Potassium 4.2 mmol/L (3.5-5.1) 03/24/19 07:20 Chloride 105 mmol/L (98-107) 03/24/19 07:20 Carbon Dioxide 32 mmol/L (21-32) 03/24/19 07:20 Anion Gap 2 MMOL/L (8-16) L 03/24/19 07:20 BUN 19.9 mg/dL (7-18) H 03/24/19 07:20 Creatinine 1.1 mg/dL (0.55-1.3) 03/24/19 07:20 Est GFR (CKD-EPI)AfAm 96.13 03/24/19 07:20 Est GFR (CKD-EPI)NonAf 82.94 03/24/19 07:20 Random Glucose 89 mg/dL (74-106) 03/24/19 07:20 Calcium 9.2 mg/dL (8.5-10.1) 03/24/19 07:20 Total Bilirubin 0.6 mg/dL (0.2-1) 03/24/19 07:20 AST 31 U/L (15-37) 03/24/19 07:20 ALT 59 U/L (13-61) 03/24/19 07:20 Alkaline Phosphatase 74 U/L (45-117) 03/24/19 07:20 Total Protein 6.7 g/dl (6.4-8.2) 03/24/19 07:20 Albumin 3.9 g/dl (3.4-5.0) 03/24/19 07:20 RPR Titer Nonreactive (NONREACTIVE) 03/24/19 07:20 Labs reviewed. - Treatment Hospital Course: Detox Protocol Followed, Discharged Condition Good (Alert and oriented. Steady gait. Denies withdrawal symptoms. Patient declined NRT. Patient aware of potential overdose risks and declined Narcan kit despite being explained the benefits. Patient encouraged to seek MAT.) - Medication Discharge Medications: Ambulatory Orders levETIRAcetam [Keppra -] 500 mg PO BID 09/05/17 Quetiapine Fumarate [Seroquel -] 50 mg PO HS #30 tablet 09/06/17 - Diagnosis (1) Opioid dependence with withdrawal Current Visit: Yes Status: Acute (2) Cocaine dependence Current Visit: Yes Status: Chronic Qualifiers: Substance use status: uncomplicated Qualified Code(s): F14.20 - Cocaine dependence, uncomplicated (3) Alcohol dependence with withdrawal Current Visit: Yes Status: Acute Qualifiers: Complication of substance-induced condition: uncomplicated Qualified Code(s ): F10.230 - Alcohol dependence with withdrawal, uncomplicated (4) Nicotine dependence Current Visit: Yes Status: Chronic Qualifiers: Nicotine product type: cigarettes Substance use status: uncomplicated Qualified Code(s): F17.210 - Nicotine dependence, cigarettes, uncomplicated - AMA Did Patient Leave Against Medical Advice: No (Patient requested an early discharge. Encouraged to consider MAT. )
[2019-03-28] MEDS ORDERED: METHADONE HCL 5 MG TABLET (FOR DETOX USE ONLY) PO ONE (06:00)
[2019-03-28] MEDS ORDERED: diazePAM 5 MG TABLET PO ONE (06:00)
== END 2019-03-27 17:40 | disposition home or self-care (01) | DRG 773 ==
LOC: YASAS 10:22 → Y6N 12:03
PROVIDERS: ADMIT Allergy & Immunology; ATTEND Allergy & Immunology
PROC: HZ2ZZZZ Detoxification Services for Substance Abuse Treatment (ICD-10-PCS; principal; 2019-03-23)
DX: F11.23 Opioid dependence with withdrawal (principal); F10.230 Alcohol dependence with withdrawal, uncomplicated; F14.20 Cocaine dependence, uncomplicated; F17.210 Nicotine dependence, cigarettes, uncomplicated; F19.282 Other psychoactive substance dependence with psychoactive substance-induced sleep disorder; F43.10 Post-traumatic stress disorder, unspecified; Z86.59 Personal history of other mental and behavioral disorders; Z86.69 Personal history of other diseases of the nervous system and sense organs
CPT/HCPCS: 36415; 80053; 85027; 86593; 93005; 93010

== ENCOUNTER 2019-11-26 08:48 | Inpatient (IN) | payer OTHER ==
--- NOTE | 2019-11-26 09:38 | BHS.RME ---
Substance Use & Tx History - Substance Use History Alcohol Substance amount: one pint ashley Frequency of use: Daily Substance route: Oral Date of Last Use: 11/25/19 Heroin Substance amount: 13 to 14 bags Frequency of use: Daily Substance route: Injection (ex: intravenous or skin popping) Date of Last Use: 11/25/19 Cocaine- Powder Substance amount: $30 Frequency of use: Daily Substance route: Injection (ex: intravenous or skin popping) Date of Last Use: 11/25/19 Nicotine Substance amount: 1/2 pack Frequency of use: Daily Substance route: Smoking Date of Last Use: 11/26/19 Synthetic Cannabinoid Substance amount: few drags Frequency of use: Less than 5 times a year Substance route: Smoking Date of Last Use: 11/25/19 - Last Treatment Date of last treatment: 03/23 to 03/27/19 Treatment type: Substance Use Disorder (MARVIN) Where was last treatment: Rehab Physical/Psych/Mental Status - Behavior General Behavior: Increased activity (restlessness, agitation) Eye Contact: Normal - Cooperativeness Cooperativeness: Cooperative - Thinking Thought Processes: Tight Thought content: Future oriented - Physical Health Problems Is patient presently having any pain?: No Does patient presently have any injuries (include location): No Does patient currently have a fever: No COWS - Scale Resting Pulse: 0= [place] 80 or Below Sweatin=Flushed/Facial Moisture Restless Observation: 3= Extraneous Movement Pupil Size: 0= Normal to Room Light Bone or Joint Aches: 1= Mild Discomfort Runny Nose/ Eye Tearin= Nasal Congestion GI Upset > 30mins: 2= Nausea/Diarrhea Tremor Observation: 1= Tremor [place], Not Seen Yawning Observation: 0= None Anxiety or Irritability: 2=Irritable/Anxious Goose Flesh Skin: 0=Smooth Skin COWS Score: 12 CIWA Nausea/Vomitin-Mild Nausea/No Vomiting Muscle Tremors: 2 Anxiety: 2 Agitation: 0-Normal Activity Paroxysmal Sweats: 1-Minimal Palms Moist Orientation: 0-Oriented Tacttile Disturbances: 0-None Auditory Disturbances: 0-None Visual Disturbances: 0-None Headache: 0-None Present CIWA-Ar Total Score: 6
[2019-11-26 09:55] VITALS: BMI 23.8
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
[2019-11-26] MEDS ORDERED: ONDANSETRON *ODT* 4 MG TABLET SL PRN (10:08)
[2019-11-26] MEDS ORDERED: NICOTINE POLACRILEX 2 MG GUM BUC PRN (10:08)
[2019-11-26] MEDS ORDERED: BISMUTH SUBSALICYLATE 524 MG/30 ML UD PO PRN (10:08)
[2019-11-26] MEDS ORDERED: ACETAMINOPHEN 325 MG TABLET (FP) PO PRN ×2 (10:08)
[2019-11-26] MEDS ORDERED: METHOCARBAMOL 500 MG TABLET PO PRN (10:08)
[2019-11-26] MEDS ORDERED: cloNIDine HCL 0.1 MG TABLET PO PRN (10:08)
[2019-11-26] MEDS ORDERED: MAG HYDROX/AL HYDROX/SIMETH 30 ML UNIT-DOSE CUP PO PRN (10:08)
[2019-11-26] MEDS ORDERED: chlordiazePOXIDE HCL 25 MG CAPSULE PO PRN (10:08)
[2019-11-26] MEDS ORDERED: MAGNESIUM CITRATE 300 ML BOTTLE PO PRN (10:08)
[2019-11-26] MEDS ORDERED: MENTHOL/PHENOL 1 EACH UD MM PRN (10:08)
[2019-11-26] MEDS ORDERED: MAGNESIUM HYDROX 2400MG/30ML ORAL SUSPENSION 30 ML CUP PO PRN (10:08)
[2019-11-26] MEDS ORDERED: IBUPROFEN 400 MG TABLET (FP) PO PRN (10:08)
[2019-11-26] MEDS ORDERED: METHADONE HCL 10 MG TABLET (FOR DETOX USE ONLY) PO ONE (11:00)
[2019-11-26] MEDS: chlordiazePOXIDE HCL 25 MG CAPSULE PO SCH ×3 (11:10→22:22)
[2019-11-26] MEDS: NICOTINE 14 MG/24 HOURS TOPICAL PATCH TD SCH (11:22)
[2019-11-26] MEDS: hydrOXYzine PAMOATE 25 MG CAPSULE (FP) PO SCH ×3 (13:10→22:24)
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
[2019-11-26 16:15] LABS: ALBUMIN 4.3 g/dl (3.4-5.0); BLOOD UREA NITROGEN 23.4 mg/dL (7-18); CALCIUM 9.5 mg/dL (8.5-10.1); CREATININE 1.2 mg/dL (0.55-1.3); POTASSIUM 4.1 mmol/L (3.5-5.1); TOT PROT 7.7 g/dl (6.4-8.2)
[2019-11-26 16:17] LABS: HEMATOCRIT 41.4 % (35.4-49); HEMOGLOBIN 14.2 GM/dL (11.7-16.9); MCHC 34.3 g/dl (32.0-35.9); MEAN CELL VOLUME 87.4 fl (80-96); PLATELET COUNT 187 K/MM3 (134-434); RBC 4.74 M/mm3 (4.00-5.60); RDW 13.8 % (11.9-15.9)
[2019-11-26] MEDS: THIAMINE HCL 100 MG TABLET (FP) PO SCH (22:22)
[2019-11-26] MEDS: QUEtiapine FUMARATE 50 MG TABLET PO SCH (22:22)
[2019-11-26] MEDS: MELATONIN 5 MG TABLETS PO SCH (22:22)
[2019-11-27] MEDS: chlordiazePOXIDE HCL 25 MG CAPSULE PO SCH ×4 (06:34→22:42)
[2019-11-27] MEDS: hydrOXYzine PAMOATE 25 MG CAPSULE (FP) PO SCH ×5 (06:35→22:42)
[2019-11-27] MEDS ORDERED: METHADONE HCL 5 MG TABLET (FOR DETOX USE ONLY) ONE (09:03)
[2019-11-27] MEDS ORDERED: METHADONE HCL 10 MG TABLET (FOR DETOX USE ONLY) ONE (09:03)
[2019-11-27] MEDS ORDERED: METHADONE (DETOX) 20 MG, METHADONE (DETOX) 5 MG PO ONE (10:00)
[2019-11-27] MEDS: PRENATAL VITAMINS W/ FOLIC ACID TABLET (FP) PO SCH (10:14)
[2019-11-27] MEDS: NICOTINE 14 MG/24 HOURS TOPICAL PATCH TD SCH (10:16)
--- NOTE | 2019-11-27 14:39 | PN ---
S CIWA - CIWA Score Nausea/Vomitin Muscle Tremors: 2 Anxiety: 2 Agitation: 2 Paroxysmal Sweats: No Perspiration Orientation: 0-Oriented Tacttile Disturbances: 1-Very Mild Itch/Numbness Auditory Disturbances: 0-None Visual Disturbances: 0-None Headache: 2-Mild CIWA-Ar Total Score: 11 BHS COWS - Scale Resting Pulse: 0= [place] 80 or Below Sweatin= No chills or Flushing Restless Observation: 1= Difficult to Sit Still Pupil Size: 1= Pupils >than Normal Bone or Joint Aches: 2= Severe Diffuse Aches Runny Nose/ Eye Tearin= Runny Nose/Eyes GI Upset > 30mins: 2= Nausea/Diarrhea Tremor Observation of Outstretched Hands: 2= Slight Tremor Visible Yawning Observation: 2= >3x During Session Anxiety or Irritability: 2=Irritable/Anxious Goose Flesh Skin: 0=Smooth Skin COWS Score: 14 S Progress Note (SOAP) Subjective: alert,irritable,anxious,interrupted sleep,pain in the body and b ack,tremor,aching pain Objective: 11/27/19 14:38 Vital Signs Temperature 97.5 F L 11/27/19 12:34 Pulse Rate 77 11/27/19 12:34 Respiratory Rate 18 11/27/19 12:34 Blood Pressure 116/77 11/27/19 12:34 O2 Sat by Pulse Oximetry (%) 98 11/27/19 12:34 11/27/19 14:39 Laboratory Last Values WBC 5.0 K/mm3 (4.0-10.0) 11/26/19 10:15 RBC 4.74 M/mm3 (4.00-5.60) 11/26/19 10:15 Hgb 14.2 GM/dL (11.7-16.9) 11/26/19 10:15 Hct 41.4 % (35.4-49) 11/26/19 10:15 MCV 87.4 fl (80-96) 11/26/19 10:15 MCH 30.0 pg (25.7-33.7) 11/26/19 10:15 MCHC 34.3 g/dl (32.0-35.9) 11/26/19 10:15 RDW 13.8 % (11.9-15.9) 11/26/19 10:15 Plt Count 187 K/MM3 (134-434) D 11/26/19 10:15 MPV 9.0 fl (7.5-11.1) 11/26/19 10:15 Sodium 139 mmol/L (136-145) 11/26/19 10:15 Potassium 4.1 mmol/L (3.5-5.1) 11/26/19 10:15 Chloride 101 mmol/L (98-107) 11/26/19 10:15 Carbon Dioxide 31 mmol/L (21-32) 11/26/19 10:15 Anion Gap 7 MMOL/L (8-16) L 11/26/19 10:15 BUN 23.4 mg/dL (7-18) H 11/26/19 10:15 Creatinine 1.2 mg/dL (0.55-1.3) 11/26/19 10:15 Est GFR (CKD-EPI)AfAm 85.92 11/26/19 10:15 Est GFR (CKD-EPI)NonAf 74.14 11/26/19 10:15 Random Glucose 77 mg/dL (74-106) 11/26/19 10:15 Calcium 9.5 mg/dL (8.5-10.1) 11/26/19 10:15 Total Bilirubin 1.0 mg/dL (0.2-1) 11/26/19 10:15 AST 53 U/L (15-37) H 11/26/19 10:15 ALT 82 U/L (13-61) H 11/26/19 10:15 Alkaline Phosphatase 74 U/L (45-117) 11/26/19 10:15 Total Protein 7.7 g/dl (6.4-8.2) 11/26/19 10:15 Albumin 4.3 g/dl (3.4-5.0) 11/26/19 10:15 Syphilis Serology Non-reactive (NONREACTIVE) 11/26/19 10:15 COVID-19 (NAINA) Not detected (Not Detected) 11/26/19 10:15 HIV Ag/Ab Combo Qual Negative (NEGATIVE) 11/26/19 10:00 Assessment: 11/27/19 14:40 withdrawal symptom Plan: continue detox encourage oral fluid,bun is 23.4,repeat bun in am
--- NOTE | 2019-11-27 14:48 | PN ---
BHS Progress Note Note: addendum continue detox methadone and librium regimen
--- NOTE | 2019-11-27 15:04 | EKG ---
Test Reason : Blood Pressure : / mmHG Vent. Rate : 052 BPM Atrial Rate : 052 BPM P-R Int : 176 ms QRS Dur : 094 ms QT Int : 490 ms P-R-T Axes : 036 077 052 degrees QTc Int : 455 ms SINUS BRADYCARDIA MINIMAL VOLTAGE CRITERIA FOR LVH, MAY BE NORMAL VARIANT BORDERLINE ECG WHEN COMPARED WITH ECG OF 23-MAR-2019 12:02, NO SIGNIFICANT CHANGE WAS FOUND Confirmed by Regan Pabon MD ([id number]) on 11/27/2019 3:04:45 PM Referred By: Confirmed By:Regan Pabon MD
[2019-11-27] MEDS: QUEtiapine FUMARATE 50 MG TABLET PO SCH (22:42)
[2019-11-27] MEDS: MELATONIN 5 MG TABLETS PO SCH (22:42)
[2019-11-27] MEDS: THIAMINE HCL 100 MG TABLET (FP) PO SCH (22:42)
[2019-11-28] MEDS: chlordiazePOXIDE HCL 25 MG CAPSULE PO SCH ×4 (06:51→22:21)
[2019-11-28] MEDS: hydrOXYzine PAMOATE 25 MG CAPSULE (FP) PO SCH ×5 (06:52→22:21)
[2019-11-28] MEDS ORDERED: METHADONE HCL 10 MG TABLET (FOR DETOX USE ONLY) PO ONE (10:00)
[2019-11-28] MEDS: PRENATAL VITAMINS W/ FOLIC ACID TABLET (FP) PO SCH (10:20)
[2019-11-28] MEDS: NICOTINE 14 MG/24 HOURS TOPICAL PATCH TD SCH (10:20)
--- NOTE | 2019-11-28 13:20 | PN ---
[facility] CIWA - CIWA Score Nausea/Vomitin-Mild Nausea/No Vomiting Muscle Tremors: 2 Anxiety: 2 Agitation: 1-Slight > Activity Paroxysmal Sweats: No Perspiration Orientation: 0-Oriented Tacttile Disturbances: 1-Very Mild Itch/Numbness Auditory Disturbances: 0-None Visual Disturbances: 0-None Headache: 1-Very Mild CIWA-Ar Total Score: 8 BHS COWS - Scale Resting Pulse: 0= [place] 80 or Below Sweatin= No chills or Flushing Restless Observation: 0= Sits Still Pupil Size: 0= Normal to Room Light Bone or Joint Aches: 1= Mild Discomfort Runny Nose/ Eye Tearin= Nasal Congestion GI Upset > 30mins: 2= Nausea/Diarrhea Tremor Observation of Outstretched Hands: 2= Slight Tremor Visible Yawning Observation: 0= None Anxiety or Irritability: 2=Irritable/Anxious Goose Flesh Skin: 0=Smooth Skin COWS Score: 8 [facility] Progress Note (SOAP) Subjective: alert,irritable,anxious,interrupted sleep,tremor,aching pain in the body and back,nausea Objective: 11/28/19 13:18 Vital Signs Temperature 97.1 F L 11/28/19 08:35 Pulse Rate 64 11/28/19 08:35 Respiratory Rate 18 11/28/19 08:35 Blood Pressure 120/81 11/28/19 08:35 O2 Sat by Pulse Oximetry (%) 98 11/28/19 08:35 11/28/19 13:19 Laboratory Results - last 24 hr 11/28/19 08:10 BUN 15.0 Assessment: 11/28/19 13:19 withdrawal symptom Plan: continue detox mwthadone and librium regimen,hydration,fliud
[2019-11-28] MEDS: MELATONIN 5 MG TABLETS PO SCH (22:22)
[2019-11-28] MEDS: THIAMINE HCL 100 MG TABLET (FP) PO SCH (22:22)
[2019-11-28] MEDS: QUEtiapine FUMARATE 50 MG TABLET PO SCH (22:22)
[2019-11-29] MEDS ORDERED: chlordiazePOXIDE HCL 10 MG CAPSULE PO PRN
[2019-11-29] MEDS: chlordiazePOXIDE HCL 10 MG CAPSULE PO SCH ×2 (07:57→10:53)
[2019-11-29] MEDS: hydrOXYzine PAMOATE 25 MG CAPSULE (FP) PO SCH ×2 (07:58→10:53)
[2019-11-29] MEDS ORDERED: METHADONE HCL 10 MG TABLET (FOR DETOX USE ONLY) ONE (08:58)
[2019-11-29] MEDS ORDERED: METHADONE HCL 5 MG TABLET (FOR DETOX USE ONLY) ONE (08:58)
[2019-11-29 09:23] VITALS: BP 114/76; PULSE 68; TEMP 98.4
[2019-11-29] MEDS ORDERED: METHADONE (DETOX) 10 MG, METHADONE (DETOX) 5 MG PO ONE (10:00)
[2019-11-29] MEDS: NICOTINE 14 MG/24 HOURS TOPICAL PATCH TD SCH (10:52)
[2019-11-29] MEDS: PRENATAL VITAMINS W/ FOLIC ACID TABLET (FP) PO SCH (10:52)
--- NOTE | 2019-11-29 12:00 | PN ---
[facility] CIWA - CIWA Score Nausea/Vomitin-No Nausea/No Vomiting Muscle Tremors: None Anxiety: 1-Mildly Anxious Agitation: 0-Normal Activity Paroxysmal Sweats: No Perspiration Orientation: 0-Oriented Tacttile Disturbances: 0-None Auditory Disturbances: 0-None Visual Disturbances: 0-None Headache: 0-None Present CIWA-Ar Total Score: 1 [facility] COWS - Scale Resting Pulse: 0= AL 80 or Below Sweatin= No chills or Flushing Restless Observation: 0= Sits Still Pupil Size: 0= Normal to Room Light Bone or Joint Aches: 0= None Runny Nose/ Eye Tearin= None GI Upset > 30mins: 0= None Tremor Observation of Outstretched Hands: 0= None Yawning Observation: 0= None Anxiety or Irritability: 1=Feels Anxious/Irritable Goose Flesh Skin: 0=Smooth Skin COWS Score: 1 [facility] Progress Note (SOAP) Subjective: alert,no complaint Objective: 11/29/19 12:11 Vital Signs Temperature 98.4 F 11/29/19 08:51 Pulse Rate 68 11/29/19 08:51 Respiratory Rate 18 11/29/19 08:51 Blood Pressure 114/76 11/29/19 08:51 O2 Sat by Pulse Oximetry (%) 99 11/29/19 06:00 Assessment: 11/29/19 12:12 stable for discharge today,no withdrawal symptom 11/29/19 12:12 Plan: discharge ,follow up with after care programs as arrangement
--- NOTE | 2019-11-29 12:00 | DS ---
[facility] Detox Discharge Summary Admission Date: 11/26/19 Discharge Date: 11/29/19 - History Present History: Alcohol Dependence, Cocaine Dependence, Opioid Dependence Additional Comments: alert,oriented x 3 ambulation on the unit lung clear on auscultation bilaterally abdomen soft,no distension,no pain no withdrawal symptom stable for discharge today follow up with after care program [facility] as arrangement declined rehab left the unit in stable condition total time of discharge 35 minutes Pertinent Past History: ptsd - Physical Exam Results Vital Signs: Vital Signs Temperature 98.4 F 11/29/19 08:51 Pulse Rate 68 11/29/19 08:51 Respiratory Rate 18 11/29/19 08:51 Blood Pressure 114/76 11/29/19 08:51 O2 Sat by Pulse Oximetry (%) 99 11/29/19 06:00 Pertinent Admission Physical Exam Findings: withdrawal signs and symptom Laboratory Last Values WBC 5.0 K/mm3 (4.0-10.0) 11/26/19 10:15 RBC 4.74 M/mm3 (4.00-5.60) 11/26/19 10:15 Hgb 14.2 GM/dL (11.7-16.9) 11/26/19 10:15 Hct 41.4 % (35.4-49) 11/26/19 10:15 MCV 87.4 fl (80-96) 11/26/19 10:15 MCH 30.0 pg (25.7-33.7) 11/26/19 10:15 MCHC 34.3 g/dl (32.0-35.9) 11/26/19 10:15 RDW 13.8 % (11.9-15.9) 11/26/19 10:15 Plt Count 187 K/MM3 (134-434) D 11/26/19 10:15 MPV 9.0 fl (7.5-11.1) 11/26/19 10:15 Sodium 139 mmol/L (136-145) 11/26/19 10:15 Potassium 4.1 mmol/L (3.5-5.1) 11/26/19 10:15 Chloride 101 mmol/L (98-107) 11/26/19 10:15 Carbon Dioxide 31 mmol/L (21-32) 11/26/19 10:15 Anion Gap 7 MMOL/L (8-16) L 11/26/19 10:15 BUN 15.0 mg/dL (7-18) 11/28/19 08:10 Creatinine 1.2 mg/dL (0.55-1.3) 11/26/19 10:15 Est GFR (CKD-EPI)AfAm 85.92 11/26/19 10:15 Est GFR (CKD-EPI)NonAf 74.14 11/26/19 10:15 Random Glucose 77 mg/dL (74-106) 11/26/19 10:15 Calcium 9.5 mg/dL (8.5-10.1) 11/26/19 10:15 Total Bilirubin 1.0 mg/dL (0.2-1) 11/26/19 10:15 AST 53 U/L (15-37) H 11/26/19 10:15 ALT 82 U/L (13-61) H 11/26/19 10:15 Alkaline Phosphatase 74 U/L (45-117) 11/26/19 10:15 Total Protein 7.7 g/dl (6.4-8.2) 11/26/19 10:15 Albumin 4.3 g/dl (3.4-5.0) 11/26/19 10:15 Syphilis Serology Non-reactive (NONREACTIVE) 11/26/19 10:15 COVID-19 ([facility]) Not detected (Not Detected) 11/26/19 10:15 HIV Ag/Ab Combo Qual Negative (NEGATIVE) 11/26/19 10:00 Vital Signs Temperature 98.4 F 11/29/19 08:51 Pulse Rate 68 11/29/19 08:51 Respiratory Rate 18 11/29/19 08:51 Blood Pressure 114/76 11/29/19 08:51 O2 Sat by Pulse Oximetry (%) 99 11/29/19 06:00 - Treatment Hospital Course: Detox Protocol Followed, Detoxed Safely, Responded well, Discharged Condition Good Patient has Accepted a Rehab Referral to: declined - Medication Discharge Medications: Ambulatory Orders Quetiapine Fumarate [Seroquel -] 100 mg PO HS 11/26/19 - Diagnosis (1) Alcohol dependence with withdrawal Current Visit: Yes Status: Acute Qualifiers: Complication of substance-induced condition: uncomplicated Qualified Code(s): F10.230 - Alcohol dependence with withdrawal, uncomplicated (2) Opioid dependence with withdrawal Current Visit: Yes Status: Acute (3) Cocaine dependence Current Visit: Yes Status: Chronic Qualifiers: Substance use status: uncomplicated Qualified Code(s): F14.20 - Cocaine dependence, uncomplicated (4) History of posttraumatic stress disorder (PTSD) Current Visit: Yes Status: Chronic (5) Nicotine dependence Current Visit: Yes Status: Chronic Qualifiers: Nicotine product type: cigarettes Substance use status: uncomplicated Qualified Code(s): F17.210 - Nicotine dependence, cigarettes, uncomplicated (6) HEP-C Current Visit: No Status: Chronic (7) IV drug user Current Visit: No Status: Chronic (8) Positive PPD, treated Current Visit: No Status: Chronic (9) Post traumatic stress disorder (PTSD) Current Visit: No Status: Chronic - AMA Did Patient Leave Against Medical Advice: No
[2019-11-30] MEDS ORDERED: chlordiazePOXIDE HCL 10 MG CAPSULE PO SCH (05:00)
[2019-11-30] MEDS ORDERED: METHADONE HCL 10 MG TABLET (FOR DETOX USE ONLY) PO ONE (10:00)
[2019-12-01] MEDS ORDERED: chlordiazePOXIDE HCL 10 MG CAPSULE PO ONE (05:00)
[2019-12-01] MEDS ORDERED: METHADONE HCL 5 MG TABLET (FOR DETOX USE ONLY) PO ONE (06:00)
== END 2019-11-29 12:00 | disposition home or self-care (01) | DRG 773 ==
LOC: YASAS 08:48 → Y3N 10:07
PROVIDERS: ADMIT Allergy & Immunology; ATTEND Allergy & Immunology
PROC: HZ2ZZZZ Detoxification Services for Substance Abuse Treatment (ICD-10-PCS; principal; 2019-11-26)
DX: F10.230 Alcohol dependence with withdrawal, uncomplicated (principal); F11.23 Opioid dependence with withdrawal; F14.20 Cocaine dependence, uncomplicated; F12.20 Cannabis dependence, uncomplicated; F17.210 Nicotine dependence, cigarettes, uncomplicated; F31.9 Bipolar disorder, unspecified; F19.24 Other psychoactive substance dependence with psychoactive substance-induced mood disorder; F43.10 Post-traumatic stress disorder, unspecified; B18.2 Chronic viral hepatitis C; R76.11 Nonspecific reaction to tuberculin skin test without active tuberculosis; R63.4 Abnormal weight loss; Z68.23 Body mass index [BMI] 23.0-23.9, adult; Z91.19 Patient's noncompliance with other medical treatment and regimen; Z56.0 Unemployment, unspecified; Z59.0 Homelessness
CPT/HCPCS: 36415; 71046-TC-FY; 80053; 84520; 85027; 86780; 87389; 93005; 93010; U0003

== ENCOUNTER 2021-10-27 23:41 | Inpatient (IN) | payer OTHER ==
[2021-10-28 03:18] VITALS: BMI 25.0
[2021-10-28] MEDS ORDERED: BISMUTH SUBSALICYLATE 524 MG/30 ML PO PRN (05:11)
[2021-10-28] MEDS ORDERED: NICOTINE 10 MG CARTRIDGE (INHALER) IH PRN (05:11)
[2021-10-28] MEDS ORDERED: ONDANSETRON *ODT* 4 MG TABLET SL PRN (05:11)
[2021-10-28] MEDS ORDERED: LOPERAMIDE HCL 2 MG CAPSULE PO PRN (05:11)
[2021-10-28] MEDS ORDERED: IBUPROFEN 600 MG TABLET (FP) PO PRN (05:11)
[2021-10-28] MEDS ORDERED: MAGNESIUM HYDROX 2400MG/30ML ORAL SUSPENSION 30 ML CUP PO PRN (05:11)
[2021-10-28] MEDS ORDERED: ACETAMINOPHEN 325 MG TABLET (FP) PO PRN ×2 (05:11)
[2021-10-28] MEDS ORDERED: MAG HYDROX/AL HYDROX/SIMETH 30 ML UNIT-DOSE CUP PO PRN (05:11)
[2021-10-28] MEDS ORDERED: METHOCARBAMOL 500 MG TABLET PO PRN (05:11)
[2021-10-28] MEDS ORDERED: BENZOCAINE/MENTHOL (CHLORASEPTIC ) LOZENGE MM PRN (05:11)
[2021-10-28] MEDS ORDERED: DICYCLOMINE HCL 10 MG CAPSULE PO PRN (05:11)
[2021-10-28] MEDS ORDERED: IBUPROFEN 400 MG TABLET (FP) PO PRN (05:11)
[2021-10-28] MEDS ORDERED: MAGNESIUM CITRATE 300 ML BOTTLE PO PRN (05:11)
[2021-10-28] MEDS: NICOTINE 14 MG/24 HOURS TOPICAL PATCH TD SCH (10:32)
[2021-10-28] MEDS: PRENATAL VITAMINS W/ FOLIC ACID TABLET (FP) PO SCH (10:32)
[2021-10-28] MEDS ORDERED: methaDONE HCL 10 MG TABLET (FOR DETOX USE ONLY) PO ONE (13:18)
[2021-10-28] MEDS ORDERED: cloNIDine HCL 0.1 MG TABLET PO PRN (13:18)
[2021-10-28 14:35] LABS: HEMOGLOBIN 13.6 GM/dL (11.7-16.9); MCH 31.1 pg (25.7-33.7); MCHC 33.9 g/dl (32.0-35.9); MEAN CELL VOLUME 91.8 fl (80-96); MEAN PLT VOLUME 8.4 fl (7.5-11.1); PLATELET COUNT 194 10^3/uL (134-434); RBC 4.35 M/mm3 (4.00-5.60); RDW 12.4 % (11.9-15.9); WHITE BLOOD COUNT 6.5 K/mm3 (4.0-10.0)
[2021-10-28 15:50] LABS: CALCIUM 9.3 mg/dL (8.5-10.1)
[2021-10-28 15:51] LABS: BLOOD UREA NITROGEN 23.1 mg/dL (7-18)
[2021-10-28 15:54] LABS: CREATININE 1.1 mg/dL (0.55-1.3)
[2021-10-28 15:56] LABS: BILIRUBIN,TOTAL 0.7 mg/dL (0.2-1); TOT PROT 7.2 g/dl (6.4-8.2)
[2021-10-28] MEDS: THIAMINE HCL 100 MG TABLET (FP) PO SCH (22:59)
[2021-10-28] MEDS: levETIRAcetam 500 MG TABLET (FP) PO SCH (22:59)
[2021-10-28] MEDS: MELATONIN 5 MG TABLETS PO SCH (22:59)
[2021-10-28] MEDS: QUEtiapine FUMARATE 50 MG TABLET PO SCH (22:59)
[2021-10-29] MEDS: levETIRAcetam 500 MG TABLET (FP) PO SCH ×2 (10:38→22:12)
[2021-10-29] MEDS: PRENATAL VITAMINS W/ FOLIC ACID TABLET (FP) PO SCH (10:38)
[2021-10-29] MEDS: NICOTINE 14 MG/24 HOURS TOPICAL PATCH TD SCH (10:39)
[2021-10-29] MEDS: MELATONIN 5 MG TABLETS PO SCH (22:12)
[2021-10-29] MEDS: QUEtiapine FUMARATE 50 MG TABLET PO SCH (22:12)
[2021-10-29] MEDS: THIAMINE HCL 100 MG TABLET (FP) PO SCH (22:12)
[2021-10-30] MEDS ORDERED: methaDONE HCL 10 MG TABLET (FOR DETOX USE ONLY) PO ONE (10:00)
[2021-10-30] MEDS: levETIRAcetam 500 MG TABLET (FP) PO SCH ×2 (10:35→22:47)
[2021-10-30] MEDS: PRENATAL VITAMINS W/ FOLIC ACID TABLET (FP) PO SCH (10:35)
[2021-10-30] MEDS: NICOTINE 14 MG/24 HOURS TOPICAL PATCH TD SCH (10:35)
[2021-10-30] MEDS: THIAMINE HCL 100 MG TABLET (FP) PO SCH (22:47)
[2021-10-30] MEDS: MELATONIN 5 MG TABLETS PO SCH (22:47)
[2021-10-30] MEDS: QUEtiapine FUMARATE 50 MG TABLET PO SCH (22:48)
[2021-10-31 11:11] VITALS: BP 145/88; PULSE 56; RESP 17; TEMP 97.8
[2021-11-01] MEDS ORDERED: methaDONE HCL 10 MG TABLET (FOR DETOX USE ONLY) PO ONE (10:00)
== END 2021-10-31 09:48 | disposition left against medical advice (07) | DRG 770 ==
LOC: YASAS 23:41 → UNDOADMIN 10-28 05:28 → Y6N 10-28 05:28
PROVIDERS: ADMIT Allergy & Immunology; ATTEND Surgery
PROC: HZ2ZZZZ Detoxification Services for Substance Abuse Treatment (ICD-10-PCS; principal; 2021-10-28)
DX: F11.23 Opioid dependence with withdrawal (principal); F14.20 Cocaine dependence, uncomplicated; F12.20 Cannabis dependence, uncomplicated; F17.213 Nicotine dependence, cigarettes, with withdrawal; F41.9 Anxiety disorder, unspecified; F43.10 Post-traumatic stress disorder, unspecified; F31.9 Bipolar disorder, unspecified; F19.282 Other psychoactive substance dependence with psychoactive substance-induced sleep disorder; G40.909 Epilepsy, unspecified, not intractable, without status epilepticus; B18.2 Chronic viral hepatitis C; R00.1 Bradycardia, unspecified; Z87.820 Personal history of traumatic brain injury; Z86.11 Personal history of tuberculosis; Z91.14 Patient's other noncompliance with medication regimen; Z56.0 Unemployment, unspecified; Z59.00 Homelessness unspecified
CPT/HCPCS: 36415; 80053; 85027; 86780; 87811; C9803-CS; J0735; U0003; U0005

== ENCOUNTER 2021-11-30 19:29 | Inpatient (IN) | payer OTHER ==
[2021-12-01 03:06] VITALS: BMI 25.0
[2021-12-01] MEDS ORDERED: MAGNESIUM HYDROX 2400MG/30ML ORAL SUSPENSION 30 ML CUP PO PRN (03:48)
[2021-12-01] MEDS ORDERED: ACETAMINOPHEN 325 MG TABLET (FP) PO PRN ×2 (03:48)
[2021-12-01] MEDS ORDERED: chlordiazePOXIDE HCL 25 MG CAPSULE PO PRN (03:48)
[2021-12-01] MEDS ORDERED: IBUPROFEN 400 MG TABLET (FP) PO PRN (03:48)
[2021-12-01] MEDS ORDERED: ONDANSETRON *ODT* 4 MG TABLET SL PRN (03:48)
[2021-12-01] MEDS ORDERED: BENZOCAINE/MENTHOL (CHLORASEPTIC ) LOZENGE MM PRN (03:48)
[2021-12-01] MEDS ORDERED: MAG HYDROX/AL HYDROX/SIMETH 30 ML UNIT-DOSE CUP PO PRN (03:48)
[2021-12-01] MEDS ORDERED: cloNIDine HCL 0.1 MG TABLET PO PRN (03:48)
[2021-12-01] MEDS ORDERED: LOPERAMIDE HCL 2 MG CAPSULE PO PRN (03:48)
[2021-12-01] MEDS ORDERED: BISMUTH SUBSALICYLATE 524 MG/30 ML PO PRN (03:48)
[2021-12-01] MEDS ORDERED: MAGNESIUM CITRATE 300 ML BOTTLE PO PRN (03:48)
[2021-12-01] MEDS ORDERED: NICOTINE POLACRILEX 2 MG GUM BUC PRN (03:48)
[2021-12-01] MEDS ORDERED: IBUPROFEN 600 MG TABLET (FP) PO PRN (03:48)
[2021-12-01] MEDS ORDERED: methaDONE HCL 10 MG TABLET (FOR DETOX USE ONLY) PO ONE (03:48)
[2021-12-01] MEDS ORDERED: DICYCLOMINE HCL 10 MG CAPSULE PO PRN (03:48)
[2021-12-01] MEDS: METHOCARBAMOL 500 MG TABLET PO PRN (05:27)
[2021-12-01] MEDS: chlordiazePOXIDE HCL 25 MG CAPSULE PO SCH ×3 (05:28→18:11)
[2021-12-01] MEDS: NICOTINE 14 MG/24 HOURS TOPICAL PATCH TD SCH (11:18)
[2021-12-01] MEDS: PRENATAL VITAMINS W/ FOLIC ACID TABLET (FP) PO SCH (11:20)
[2021-12-01 13:57] LABS: HEMATOCRIT 38.5 % (35.4-49); HEMOGLOBIN 13.1 GM/dL (11.7-16.9); MCHC 33.9 g/dl (32.0-35.9); MEAN CELL VOLUME 88.5 fl (80-96); MEAN PLT VOLUME 8.4 fl (7.5-11.1); PLATELET COUNT 215 10^3/uL (134-434); RBC 4.35 M/mm3 (4.00-5.60); RDW 12.8 % (11.9-15.9); WHITE BLOOD COUNT 4.3 K/mm3 (4.0-10.0)
[2021-12-01 14:04] LABS: CALCIUM 8.8 mg/dL (8.5-10.1)
[2021-12-01 14:05] LABS: ALBUMIN 3.2 g/dl (3.4-5.0); BLOOD UREA NITROGEN 15.6 mg/dL (7-18)
[2021-12-01 14:08] LABS: CREATININE 0.9 mg/dL (0.55-1.3)
[2021-12-01 14:09] LABS: BILIRUBIN,TOTAL 0.5 mg/dL (0.2-1)
[2021-12-01 14:10] LABS: TOT PROT 6.4 g/dl (6.4-8.2)
[2021-12-01 14:48] LABS: HIV INTERPRETATION NEGATIVE (NEGATIVE)
[2021-12-01] MEDS: MELATONIN 5 MG TABLETS PO SCH (22:31)
[2021-12-01] MEDS: QUEtiapine FUMARATE 100 MG TABLET (FP) PO SCH (22:32)
[2021-12-01] MEDS: THIAMINE HCL 100 MG TABLET (FP) PO SCH (22:32)
[2021-12-01] MEDS: diazePAM 5 MG TABLET PO SCH (22:32)
[2021-12-02] MEDS ORDERED: chlordiazePOXIDE HCL 25 MG CAPSULE PO SCH (05:00)
[2021-12-02] MEDS: diazePAM 5 MG TABLET PO SCH ×4 (06:11→22:25)
[2021-12-02] MEDS: NICOTINE 14 MG/24 HOURS TOPICAL PATCH TD SCH (10:34)
[2021-12-02] MEDS: PRENATAL VITAMINS W/ FOLIC ACID TABLET (FP) PO SCH (10:34)
[2021-12-02] MEDS: THIAMINE HCL 100 MG TABLET (FP) PO SCH (22:25)
[2021-12-02] MEDS: MELATONIN 5 MG TABLETS PO SCH (22:25)
[2021-12-02] MEDS: QUEtiapine FUMARATE 100 MG TABLET (FP) PO SCH (22:25)
[2021-12-03] MEDS ORDERED: chlordiazePOXIDE HCL 10 MG CAPSULE PO PRN
[2021-12-03] MEDS ORDERED: chlordiazePOXIDE HCL 10 MG CAPSULE PO SCH (05:00)
[2021-12-03] MEDS: diazePAM 5 MG TABLET PO SCH ×3 (06:03→22:13)
[2021-12-03] MEDS ORDERED: methaDONE HCL 10 MG TABLET (FOR DETOX USE ONLY) PO ONE (10:00)
[2021-12-03] MEDS: diazePAM 5 MG TABLET PO PRN (10:47)
[2021-12-03] MEDS: NICOTINE 14 MG/24 HOURS TOPICAL PATCH TD SCH (10:48)
[2021-12-03] MEDS: PRENATAL VITAMINS W/ FOLIC ACID TABLET (FP) PO SCH (10:48)
[2021-12-03 21:32] VITALS: TEMP 97.1
[2021-12-03] MEDS: THIAMINE HCL 100 MG TABLET (FP) PO SCH (22:13)
[2021-12-03] MEDS: QUEtiapine FUMARATE 100 MG TABLET (FP) PO SCH (22:13)
[2021-12-03] MEDS: MELATONIN 5 MG TABLETS PO SCH (22:13)
[2021-12-04] MEDS ORDERED: chlordiazePOXIDE HCL 10 MG CAPSULE PO SCH (05:00)
[2021-12-04] MEDS ORDERED: diazePAM 5 MG TABLET PO SCH (06:00)
[2021-12-04] MEDS: NICOTINE 14 MG/24 HOURS TOPICAL PATCH TD SCH (10:32)
[2021-12-04] MEDS: diazePAM 5 MG TABLET PO PRN (10:32)
[2021-12-04] MEDS: METHOCARBAMOL 500 MG TABLET PO PRN (10:33)
[2021-12-04] MEDS: PRENATAL VITAMINS W/ FOLIC ACID TABLET (FP) PO SCH (10:35)
[2021-12-04 13:07] VITALS: BP 141/86; PULSE 110; RESP 18
[2021-12-05] MEDS ORDERED: chlordiazePOXIDE HCL 10 MG CAPSULE PO ONE (05:00)
[2021-12-05] MEDS ORDERED: diazePAM 5 MG TABLET PO ONE (06:00)
[2021-12-05] MEDS ORDERED: methaDONE HCL 10 MG TABLET (FOR DETOX USE ONLY) PO ONE (10:00)
== END 2021-12-04 13:26 | disposition home or self-care (01) | DRG 773 ==
LOC: YASAS 19:29 → Y3N 12-01 04:22
PROVIDERS: ADMIT Surgery; ATTEND Surgery
PROC: HZ2ZZZZ Detoxification Services for Substance Abuse Treatment (ICD-10-PCS; principal; 2021-12-01)
DX: F11.23 Opioid dependence with withdrawal (principal); F10.230 Alcohol dependence with withdrawal, uncomplicated; F14.20 Cocaine dependence, uncomplicated; F12.20 Cannabis dependence, uncomplicated; F17.210 Nicotine dependence, cigarettes, uncomplicated; F31.9 Bipolar disorder, unspecified; F43.10 Post-traumatic stress disorder, unspecified; G40.909 Epilepsy, unspecified, not intractable, without status epilepticus; Z56.0 Unemployment, unspecified; Z59.00 Homelessness unspecified
CPT/HCPCS: 36415; 71046-TC-FY; 80053; 85027; 86780; 87389; 93005; 93010; C9803-CS; U0003; U0005

== ENCOUNTER 2022-02-22 14:57 | Inpatient (IN) | payer OTHER ==
[2022-02-22 18:23] VITALS: BMI 24.4
[2022-02-22] MEDS ORDERED: MAG HYDROX/AL HYDROX/SIMETH 30 ML UNIT-DOSE CUP PO PRN (18:56)
[2022-02-22] MEDS ORDERED: ACETAMINOPHEN 325 MG TABLET (FP) PO PRN ×2 (18:56)
[2022-02-22] MEDS ORDERED: IBUPROFEN 600 MG TABLET (FP) PO PRN (18:56)
[2022-02-22] MEDS ORDERED: NICOTINE 10 MG CARTRIDGE (INHALER) IH PRN (18:56)
[2022-02-22] MEDS ORDERED: IBUPROFEN 400 MG TABLET (FP) PO PRN (18:56)
[2022-02-22] MEDS ORDERED: NALOXONE HCL (KLOXXADO) 8 MG SPRAY NS PRN (18:56)
[2022-02-22] MEDS ORDERED: BISMUTH SUBSALICYLATE 524 MG/30 ML PO PRN (18:56)
[2022-02-22] MEDS ORDERED: ONDANSETRON *ODT* 4 MG TABLET SL PRN (18:56)
[2022-02-22] MEDS ORDERED: POLYETHYLENE GLYCOL (HEALTHYLAX) 3350 17 GM PACKET PO PRN (18:56)
[2022-02-22] MEDS ORDERED: DICYCLOMINE HCL 10 MG CAPSULE PO PRN (18:56)
[2022-02-22] MEDS ORDERED: BENZOCAINE/MENTHOL (CHLORASEPTIC ) LOZENGE MM PRN (18:56)
[2022-02-22] MEDS ORDERED: MAGNESIUM HYDROX 2400MG/30ML ORAL SUSPENSION 30 ML CUP PO PRN (18:56)
[2022-02-22] MEDS ORDERED: LOPERAMIDE HCL 2 MG CAPSULE PO PRN (18:56)
[2022-02-22] MEDS ORDERED: NICOTINE POLACRILEX 2 MG GUM BUC PRN (18:56)
[2022-02-22] MEDS ORDERED: chlordiazePOXIDE HCL 25 MG CAPSULE PO STA (19:00)
[2022-02-22] MEDS: chlordiazePOXIDE HCL 25 MG CAPSULE PO SCH (22:06)
[2022-02-22] MEDS: THIAMINE HCL 100 MG TABLET (FP) PO SCH (22:06)
[2022-02-22] MEDS: levETIRAcetam 500 MG TABLET (FP) PO SCH (22:08)
[2022-02-22] MEDS: MELATONIN 5 MG TABLETS PO SCH (22:08)
[2022-02-22] MEDS: PRENATAL VITAMINS W/ FOLIC ACID TABLET (FP) PO SCH (22:09)
[2022-02-23] MEDS: chlordiazePOXIDE HCL 25 MG CAPSULE PO SCH ×4 (05:50→21:59)
[2022-02-23 09:35] LABS: HEMATOCRIT 41.4 % (35.4-49); HEMOGLOBIN 13.8 GM/dL (11.7-16.9); MCH 29.1 pg (25.7-33.7); MCHC 33.3 g/dl (32.0-35.9); MEAN CELL VOLUME 87.4 fl (80-96); MEAN PLT VOLUME 8.4 fl (7.5-11.1); PLATELET COUNT 177 10^3/uL (134-434); RBC 4.74 M/mm3 (4.00-5.60); RDW 14.4 % (11.9-15.9); WHITE BLOOD COUNT 3.4 K/mm3 (4.0-10.0)
[2022-02-23 09:47] LABS: CALCIUM 8.7 mg/dL (8.5-10.1)
[2022-02-23 09:48] LABS: BLOOD UREA NITROGEN 14.1 mg/dL (7-18)
[2022-02-23 09:52] LABS: TOT PROT 5.8 g/dl (6.4-8.2)
[2022-02-23] MEDS ORDERED: methaDONE HCL 10 MG TABLET PO ONE (10:00)
[2022-02-23] MEDS: PRENATAL VITAMINS W/ FOLIC ACID TABLET (FP) PO SCH (10:50)
[2022-02-23] MEDS: levETIRAcetam 500 MG TABLET (FP) PO SCH ×2 (10:50→21:59)
[2022-02-23] MEDS: hydrOXYzine PAMOATE 25 MG CAPSULE (FP) PO PRN (18:25)
[2022-02-23] MEDS: METHOCARBAMOL 500 MG TABLET PO PRN (18:25)
[2022-02-23] MEDS: THIAMINE HCL 100 MG TABLET (FP) PO SCH (21:59)
[2022-02-23] MEDS: MELATONIN 5 MG TABLETS PO SCH (21:59)
[2022-02-24] MEDS: chlordiazePOXIDE HCL 25 MG CAPSULE PO SCH ×3 (05:21→16:55)
[2022-02-24] MEDS ORDERED: methaDONE HCL 10 MG TABLET PO SCH (06:00)
[2022-02-24] MEDS: PRENATAL VITAMINS W/ FOLIC ACID TABLET (FP) PO SCH (10:36)
[2022-02-24] MEDS: levETIRAcetam 500 MG TABLET (FP) PO SCH (10:36)
[2022-02-24] MEDS: METHOCARBAMOL 500 MG TABLET PO PRN ×2 (10:36→16:56)
[2022-02-24] MEDS: hydrOXYzine PAMOATE 25 MG CAPSULE (FP) PO PRN (16:56)
[2022-02-24 17:56] VITALS: BP 138/78; PULSE 82; RESP 18; TEMP 97.3
[2022-02-25] MEDS ORDERED: chlordiazePOXIDE HCL 10 MG CAPSULE PO SCH (05:00)
[2022-02-26] MEDS ORDERED: chlordiazePOXIDE HCL 10 MG CAPSULE PO SCH (05:00)
[2022-02-27] MEDS ORDERED: chlordiazePOXIDE HCL 10 MG CAPSULE PO ONE (05:00)
== END 2022-02-24 19:50 | disposition left against medical advice (07) | DRG 770 ==
LOC: YASAS 14:57 → Y6N 20:27
PROVIDERS: ADMIT Allergy & Immunology; ATTEND Surgery
PROC: HZ2ZZZZ Detoxification Services for Substance Abuse Treatment (ICD-10-PCS; principal; 2022-02-22)
DX: F11.23 Opioid dependence with withdrawal (principal); F10.230 Alcohol dependence with withdrawal, uncomplicated; F13.20 Sedative, hypnotic or anxiolytic dependence, uncomplicated; F14.20 Cocaine dependence, uncomplicated; F12.20 Cannabis dependence, uncomplicated; F17.210 Nicotine dependence, cigarettes, uncomplicated; G40.909 Epilepsy, unspecified, not intractable, without status epilepticus; F31.9 Bipolar disorder, unspecified; F43.10 Post-traumatic stress disorder, unspecified; Z86.11 Personal history of tuberculosis; Z86.69 Personal history of other diseases of the nervous system and sense organs; Z87.820 Personal history of traumatic brain injury
CPT/HCPCS: 36415; 80053; 85027; 86780; C9803-CS; U0003; U0005

== ENCOUNTER 2022-04-19 15:37 | Inpatient (IN) | payer OTHER ==
[2022-04-19] MEDS ORDERED: IBUPROFEN 400 MG TABLET (FP) PO PRN (16:56)
[2022-04-19] MEDS ORDERED: MAG HYDROX/AL HYDROX/SIMETH 30 ML UNIT-DOSE CUP PO PRN (16:56)
[2022-04-19] MEDS ORDERED: NICOTINE 10 MG CARTRIDGE (INHALER) IH PRN (16:56)
[2022-04-19] MEDS ORDERED: MAGNESIUM HYDROX 2400MG/30ML ORAL SUSPENSION 30 ML CUP PO PRN (16:56)
[2022-04-19] MEDS ORDERED: chlordiazePOXIDE HCL 25 MG CAPSULE PO PRN (16:56)
[2022-04-19] MEDS ORDERED: hydrOXYzine PAMOATE 25 MG CAPSULE (FP) PO PRN (16:56)
[2022-04-19] MEDS ORDERED: IBUPROFEN 600 MG TABLET (FP) PO PRN (16:56)
[2022-04-19] MEDS ORDERED: NALOXONE HCL (KLOXXADO) 8 MG SPRAY NS PRN (16:56)
[2022-04-19] MEDS ORDERED: ACETAMINOPHEN 325 MG TABLET (FP) PO PRN ×2 (16:56)
[2022-04-19] MEDS ORDERED: POLYETHYLENE GLYCOL (HEALTHYLAX) 3350 17 GM PACKET PO PRN (16:56)
[2022-04-19] MEDS ORDERED: DICYCLOMINE HCL 10 MG CAPSULE PO PRN (16:56)
[2022-04-19] MEDS ORDERED: BISMUTH SUBSALICYLATE 524 MG/30 ML PO PRN (16:56)
[2022-04-19] MEDS ORDERED: LOPERAMIDE HCL 2 MG CAPSULE PO PRN (16:56)
[2022-04-19] MEDS ORDERED: BENZOCAINE/MENTHOL (CHLORASEPTIC ) LOZENGE MM PRN (16:56)
[2022-04-19] MEDS ORDERED: ONDANSETRON *ODT* 4 MG TABLET SL PRN (16:56)
[2022-04-19] MEDS ORDERED: guaiFENesin 200 MG/10 ML 10 ML UNIT-DOSE CUPS PO PRN (16:56)
[2022-04-19 17:23] VITALS: BMI 25.0
[2022-04-19] MEDS: chlordiazePOXIDE HCL 25 MG CAPSULE PO SCH (22:13)
[2022-04-19] MEDS: THIAMINE HCL 100 MG TABLET (FP) PO SCH (22:13)
[2022-04-19] MEDS: MELATONIN 5 MG TABLETS PO SCH (22:15)
[2022-04-20] MEDS: chlordiazePOXIDE HCL 25 MG CAPSULE PO SCH ×4 (05:41→22:20)
[2022-04-20] MEDS ORDERED: methaDONE HCL 10 MG TABLET PO ONE (09:15)
[2022-04-20] MEDS: METHOCARBAMOL 500 MG TABLET PO PRN (10:01)
[2022-04-20] MEDS: PRENATAL VITAMINS W/ FOLIC ACID TABLET (FP) PO SCH (10:01)
[2022-04-20] MEDS: levETIRAcetam 500 MG TABLET (FP) PO SCH ×2 (10:02→22:21)
[2022-04-20 11:01] LABS: HEMATOCRIT 42.8 % (35.4-49); HEMOGLOBIN 14.2 GM/dL (11.7-16.9); MCH 29.8 pg (25.7-33.7); MCHC 33.1 g/dl (32.0-35.9); MEAN CELL VOLUME 90.1 fl (80-96); MEAN PLT VOLUME 8.3 fl (7.5-11.1); PLATELET COUNT 201 10^3/uL (134-434); RBC 4.76 M/mm3 (4.00-5.60); RDW 13.5 % (11.9-15.9)
[2022-04-20 11:08] LABS: ALBUMIN 3.6 g/dl (3.4-5.0); BLOOD UREA NITROGEN 15.5 mg/dL (7-18); CALCIUM 9.1 mg/dL (8.5-10.1)
[2022-04-20 11:09] LABS: TOT PROT 6.9 g/dl (6.4-8.2)
[2022-04-20 11:11] LABS: CREATININE 1.1 mg/dL (0.55-1.3)
[2022-04-20 11:12] LABS: BILIRUBIN,TOTAL 0.7 mg/dL (0.2-1)
[2022-04-20] MEDS: THIAMINE HCL 100 MG TABLET (FP) PO SCH (22:21)
[2022-04-20] MEDS ORDERED: QUEtiapine FUMARATE 50 MG TABLET PO ONE (22:27)
[2022-04-20] MEDS: MELATONIN 5 MG TABLETS PO SCH (22:45)
[2022-04-21] MEDS: chlordiazePOXIDE HCL 25 MG CAPSULE PO SCH ×4 (05:53→22:10)
[2022-04-21] MEDS: methaDONE HCL 10 MG TABLET PO SCH (05:55)
[2022-04-21] MEDS: PRENATAL VITAMINS W/ FOLIC ACID TABLET (FP) PO SCH (10:12)
[2022-04-21] MEDS: levETIRAcetam 500 MG TABLET (FP) PO SCH ×2 (10:12→22:10)
[2022-04-21] MEDS: METHOCARBAMOL 500 MG TABLET PO PRN (10:12)
[2022-04-21 21:06] VITALS: RESP 18
[2022-04-21] MEDS ORDERED: QUEtiapine FUMARATE 100 MG TABLET (FP) PO SCH ×2 (22:00)
[2022-04-21] MEDS: THIAMINE HCL 100 MG TABLET (FP) PO SCH (22:10)
[2022-04-21] MEDS: MELATONIN 5 MG TABLETS PO SCH (22:58)
[2022-04-22] MEDS ORDERED: chlordiazePOXIDE HCL 10 MG CAPSULE PO PRN
[2022-04-22] MEDS: chlordiazePOXIDE HCL 10 MG CAPSULE PO SCH ×2 (06:05→11:03)
[2022-04-22] MEDS: methaDONE HCL 10 MG TABLET PO SCH (06:06)
[2022-04-22 09:21] VITALS: BP 142/72; PULSE 72; TEMP 98
[2022-04-22] MEDS: PRENATAL VITAMINS W/ FOLIC ACID TABLET (FP) PO SCH (11:03)
[2022-04-22] MEDS: levETIRAcetam 500 MG TABLET (FP) PO SCH (11:03)
[2022-04-23] MEDS ORDERED: chlordiazePOXIDE HCL 10 MG CAPSULE PO SCH (05:00)
[2022-04-24] MEDS ORDERED: chlordiazePOXIDE HCL 10 MG CAPSULE PO ONE (05:00)
== END 2022-04-22 09:45 | disposition left against medical advice (07) | DRG 770 ==
LOC: YASAS 15:37 → Y6N 17:22
PROVIDERS: ADMIT Allergy & Immunology; ATTEND Family Medicine
PROC: HZ2ZZZZ Detoxification Services for Substance Abuse Treatment (ICD-10-PCS; principal; 2022-04-19)
DX: F10.230 Alcohol dependence with withdrawal, uncomplicated (principal); F11.20 Opioid dependence, uncomplicated; F14.20 Cocaine dependence, uncomplicated; F17.210 Nicotine dependence, cigarettes, uncomplicated; F19.282 Other psychoactive substance dependence with psychoactive substance-induced sleep disorder; F31.9 Bipolar disorder, unspecified; F43.10 Post-traumatic stress disorder, unspecified; R56.1 Post traumatic seizures; G47.00 Insomnia, unspecified; Z87.820 Personal history of traumatic brain injury; Z86.19 Personal history of other infectious and parasitic diseases; Z86.11 Personal history of tuberculosis; Z59.00 Homelessness unspecified; Z56.0 Unemployment, unspecified
CPT/HCPCS: 36415; 80053; 80177; 85027; 86780; C9803-CS; U0003; U0005

== ENCOUNTER 2022-08-05 12:46 | Inpatient (IN) | payer OTHER ==
[2022-08-05 13:07] VITALS: BMI 24.4
[2022-08-05] MEDS ORDERED: MAG HYDROX/AL HYDROX/SIMETH 30 ML UNIT-DOSE CUP PO PRN (17:58)
[2022-08-05] MEDS ORDERED: BISMUTH SUBSALICYLATE 524 MG/30 ML PO PRN (17:58)
[2022-08-05] MEDS ORDERED: LOPERAMIDE HCL 2 MG CAPSULE PO PRN (17:58)
[2022-08-05] MEDS ORDERED: POLYETHYLENE GLYCOL (HEALTHYLAX) 3350 17 GM PACKET PO PRN (17:58)
[2022-08-05] MEDS ORDERED: ACETAMINOPHEN 325 MG TABLET (FP) PO PRN (17:58)
[2022-08-05] MEDS ORDERED: DICYCLOMINE HCL 10 MG CAPSULE PO PRN (17:58)
[2022-08-05] MEDS ORDERED: guaiFENesin 600 MG TABLET.ER (FP) PO PRN (17:58)
[2022-08-05] MEDS ORDERED: BENZONATATE 200 MG CAPSULE PO PRN (17:58)
[2022-08-05] MEDS ORDERED: NALOXONE HCL 0.4 MG/ML VIAL IM PRN (17:58)
[2022-08-05] MEDS ORDERED: ONDANSETRON *ODT* 4 MG TABLET SL PRN (17:58)
[2022-08-05] MEDS ORDERED: MAGNESIUM HYDROX 2400MG/30ML ORAL SUSPENSION 30 ML CUP PO PRN (17:58)
[2022-08-05] MEDS ORDERED: NALOXONE HCL (KLOXXADO) 8 MG SPRAY NS PRN (17:58)
[2022-08-05] MEDS ORDERED: hydrOXYzine PAMOATE 25 MG CAPSULE (FP) PO PRN (17:58)
[2022-08-05] MEDS ORDERED: BENZOCAINE/MENTHOL (CHLORASEPTIC ) LOZENGE MM PRN (17:58)
[2022-08-05] MEDS ORDERED: IBUPROFEN 400 MG TABLET (FP) PO PRN (17:58)
[2022-08-05] MEDS: levETIRAcetam 500 MG TABLET (FP) PO SCH (22:20)
[2022-08-05] MEDS: THIAMINE HCL 100 MG TABLET (FP) PO SCH (22:20)
[2022-08-05] MEDS: MELATONIN 5 MG TABLETS PO SCH (22:20)
[2022-08-05] MEDS: IBUPROFEN 600 MG TABLET (FP) PO PRN (22:22)
[2022-08-05] MEDS: diazePAM 5 MG TABLET PO PRN (22:22)
[2022-08-06 09:40] LABS: HEMATOCRIT 39.7 % (35.4-49); HEMOGLOBIN 13.7 GM/dL (11.7-16.9); MCH 31.4 pg (25.7-33.7); MCHC 34.5 g/dl (32.0-35.9); MEAN CELL VOLUME 91.1 fl (80-96); MEAN PLT VOLUME 7.3 fl (7.5-11.1); PLATELET COUNT 290 10^3/uL (134-434); RBC 4.36 M/mm3 (4.00-5.60); RDW 13.1 % (11.9-15.9); WHITE BLOOD COUNT 7.5 K/mm3 (4.0-10.0)
[2022-08-06 09:43] LABS: POTASSIUM 4.6 mmol/L (3.5-5.1)
[2022-08-06 09:55] LABS: ALBUMIN 2.9 g/dl (3.4-5.0); BLOOD UREA NITROGEN 13.6 mg/dL (7-18); CALCIUM 9.1 mg/dL (8.5-10.1)
[2022-08-06 09:57] LABS: CREATININE 0.9 mg/dL (0.55-1.3)
[2022-08-06 09:59] LABS: BILIRUBIN,TOTAL 0.6 mg/dL (0.2-1); TOT PROT 6.8 g/dl (6.4-8.2)
[2022-08-06] MEDS: diazePAM 5 MG TABLET PO PRN ×2 (10:21→20:40)
[2022-08-06] MEDS: PRENATAL VITAMINS W/ FOLIC ACID TABLET (FP) PO SCH (10:23)
[2022-08-06] MEDS: levETIRAcetam 500 MG TABLET (FP) PO SCH ×2 (10:23→22:05)
[2022-08-06] MEDS: methaDONE HCL 40 MG DISPERSABLE TABLET PO SCH (11:34)
[2022-08-06] MEDS: IBUPROFEN 600 MG TABLET (FP) PO PRN (20:40)
[2022-08-06] MEDS: MELATONIN 5 MG TABLETS PO SCH (22:05)
[2022-08-06] MEDS: THIAMINE HCL 100 MG TABLET (FP) PO SCH (22:05)
[2022-08-07] MEDS: methaDONE HCL 40 MG DISPERSABLE TABLET PO SCH (05:35)
[2022-08-07] MEDS: IBUPROFEN 600 MG TABLET (FP) PO PRN ×2 (08:40→22:16)
[2022-08-07] MEDS: METHOCARBAMOL 500 MG TABLET PO PRN ×2 (08:40→22:16)
[2022-08-07] MEDS: PRENATAL VITAMINS W/ FOLIC ACID TABLET (FP) PO SCH (10:21)
[2022-08-07] MEDS: levETIRAcetam 500 MG TABLET (FP) PO SCH ×2 (10:21→22:14)
[2022-08-07] MEDS: MELATONIN 5 MG TABLETS PO SCH (22:14)
[2022-08-07] MEDS: THIAMINE HCL 100 MG TABLET (FP) PO SCH (22:14)
[2022-08-08] MEDS: methaDONE HCL 40 MG DISPERSABLE TABLET PO SCH (05:58)
[2022-08-08] MEDS: PRENATAL VITAMINS W/ FOLIC ACID TABLET (FP) PO SCH (09:06)
[2022-08-08] MEDS: METHOCARBAMOL 500 MG TABLET PO PRN (09:06)
[2022-08-08] MEDS: levETIRAcetam 500 MG TABLET (FP) PO SCH (09:06)
[2022-08-08] MEDS: IBUPROFEN 600 MG TABLET (FP) PO PRN (09:06)
[2022-08-08 09:25] VITALS: BP 127/76; PULSE 81; RESP 16; TEMP 98.9
== END 2022-08-08 12:13 | disposition home or self-care (01) | DRG 773 ==
LOC: YASAS 12:46 → Y3N 17:56
PROVIDERS: ADMIT Allergy & Immunology; ATTEND Surgery
PROC: HZ2ZZZZ Detoxification Services for Substance Abuse Treatment (ICD-10-PCS; principal; 2022-08-05)
DX: F11.23 Opioid dependence with withdrawal (principal); F10.230 Alcohol dependence with withdrawal, uncomplicated; F14.20 Cocaine dependence, uncomplicated; F17.210 Nicotine dependence, cigarettes, uncomplicated; F31.9 Bipolar disorder, unspecified; F41.9 Anxiety disorder, unspecified; F43.10 Post-traumatic stress disorder, unspecified; R56.1 Post traumatic seizures; Z59.00 Homelessness unspecified
CPT/HCPCS: 36415; 80053; 85027; 86780; 87811; C9803-CS; U0003; U0005

== ENCOUNTER 2023-01-20 23:30 | Inpatient (IN) | payer OTHER ==
[2023-01-21 00:09] VITALS: BMI 21.7
[2023-01-21] MEDS ORDERED: MAG HYDROX/AL HYDROX/SIMETH 30 ML UNIT-DOSE CUP PO PRN (00:38)
[2023-01-21] MEDS ORDERED: LOPERAMIDE HCL 2 MG CAPSULE PO PRN (00:38)
[2023-01-21] MEDS ORDERED: NALOXONE HCL (KLOXXADO) 8 MG SPRAY NS PRN (00:38)
[2023-01-21] MEDS ORDERED: BISMUTH SUBSALICYLATE 524 MG/30 ML PO PRN (00:38)
[2023-01-21] MEDS ORDERED: hydrOXYzine PAMOATE 25 MG CAPSULE (FP) PO PRN (00:38)
[2023-01-21] MEDS ORDERED: METHOCARBAMOL 500 MG TABLET PO PRN (00:38)
[2023-01-21] MEDS ORDERED: MAGNESIUM HYDROX 2400MG/30ML ORAL SUSPENSION 30 ML CUP PO PRN (00:38)
[2023-01-21] MEDS ORDERED: guaiFENesin 600 MG TABLET.ER (FP) PO PRN (00:38)
[2023-01-21] MEDS ORDERED: ONDANSETRON *ODT* 4 MG TABLET SL PRN (00:38)
[2023-01-21] MEDS ORDERED: NICOTINE POLACRILEX 2 MG GUM BUC PRN (00:38)
[2023-01-21] MEDS ORDERED: NALOXONE HCL 0.4 MG/ML VIAL IM PRN (00:38)
[2023-01-21] MEDS ORDERED: POLYETHYLENE GLYCOL (HEALTHYLAX) 3350 17 GM PACKET PO PRN (00:38)
[2023-01-21] MEDS ORDERED: IBUPROFEN 400 MG TABLET (FP) PO PRN (00:38)
[2023-01-21] MEDS ORDERED: DICYCLOMINE HCL 10 MG CAPSULE PO PRN (00:38)
[2023-01-21] MEDS ORDERED: BENZONATATE 200 MG CAPSULE PO PRN (00:38)
[2023-01-21] MEDS ORDERED: ACETAMINOPHEN 325 MG TABLET (FP) PO PRN (00:38)
[2023-01-21] MEDS ORDERED: IBUPROFEN 600 MG TABLET (FP) PO PRN (00:38)
[2023-01-21] MEDS ORDERED: BENZOCAINE/MENTHOL (CHLORASEPTIC ) LOZENGE MM PRN (00:38)
[2023-01-21] MEDS: PRENATAL VITAMINS W/ FOLIC ACID TABLET (FP) PO SCH (10:21)
[2023-01-21] MEDS: levETIRAcetam 500 MG TABLET (FP) PO SCH ×2 (10:21→22:38)
[2023-01-21] MEDS: NICOTINE 14 MG/24 HOURS TOPICAL PATCH TD SCH (10:21)
[2023-01-21] MEDS ORDERED: chlordiazePOXIDE HCL 25 MG CAPSULE PO PRN (10:31)
[2023-01-21] MEDS: chlordiazePOXIDE HCL 25 MG CAPSULE PO SCH ×3 (10:57→22:38)
[2023-01-21] MEDS ORDERED: methaDONE HCL 10 MG TABLET PO ONE (19:37)
[2023-01-21] MEDS: MELATONIN 5 MG TABLETS PO SCH (22:38)
[2023-01-21] MEDS: THIAMINE HCL 100 MG TABLET (FP) PO SCH (22:38)
[2023-01-21] MEDS: QUEtiapine FUMARATE 100 MG TABLET (FP) PO SCH (22:38)
[2023-01-22] MEDS: chlordiazePOXIDE HCL 25 MG CAPSULE PO SCH ×4 (05:33→22:13)
[2023-01-22] MEDS: methaDONE HCL 10 MG TABLET PO ONE ×2 (09:06→09:25)
[2023-01-22] MEDS: PRENATAL VITAMINS W/ FOLIC ACID TABLET (FP) PO SCH (09:25)
[2023-01-22] MEDS: levETIRAcetam 500 MG TABLET (FP) PO SCH ×2 (09:26→22:13)
[2023-01-22 09:48] LABS: HEMATOCRIT 40.3 % (35.4-49); HEMOGLOBIN 13.7 GM/dL (11.7-16.9); MCH 28.8 pg (25.7-33.7); MCHC 33.9 g/dl (32.0-35.9); MEAN PLT VOLUME 8.1 fl (7.5-11.1); PLATELET COUNT 187 10^3/uL (134-434); RBC 4.75 M/mm3 (4.00-5.60); RDW 14.5 % (11.9-15.9); WHITE BLOOD COUNT 6.8 K/mm3 (4.0-10.0)
[2023-01-22 09:52] LABS: POTASSIUM 4.3 mmol/L (3.5-5.1)
[2023-01-22 10:02] LABS: BLOOD UREA NITROGEN 15.6 mg/dL (7-18)
[2023-01-22 10:03] LABS: CALCIUM 8.8 mg/dL (8.5-10.1)
[2023-01-22 10:04] LABS: BILIRUBIN,TOTAL 0.2 mg/dL (0.2-1); TOT PROT 6.2 g/dl (6.4-8.2)
[2023-01-22] MEDS: NICOTINE 14 MG/24 HOURS TOPICAL PATCH TD SCH (10:20)
[2023-01-22] MEDS: QUEtiapine FUMARATE 100 MG TABLET (FP) PO SCH (22:13)
[2023-01-22] MEDS: MELATONIN 5 MG TABLETS PO SCH (22:13)
[2023-01-22] MEDS: THIAMINE HCL 100 MG TABLET (FP) PO SCH (22:13)
[2023-01-23] MEDS: chlordiazePOXIDE HCL 10 MG CAPSULE PO SCH ×2 (05:46→10:16)
[2023-01-23] MEDS ORDERED: methaDONE HCL 10 MG TABLET PO SCH (06:00)
[2023-01-23 06:22] VITALS: RESP 18
[2023-01-23] MEDS: PRENATAL VITAMINS W/ FOLIC ACID TABLET (FP) PO SCH (10:16)
[2023-01-23] MEDS: levETIRAcetam 500 MG TABLET (FP) PO SCH (10:16)
[2023-01-23] MEDS: NICOTINE 14 MG/24 HOURS TOPICAL PATCH TD SCH (10:17)
[2023-01-23 13:14] VITALS: BP 136/85; PULSE 86; TEMP 98.4
[2023-01-24] MEDS ORDERED: chlordiazePOXIDE HCL 10 MG CAPSULE PO PRN
[2023-01-24] MEDS ORDERED: chlordiazePOXIDE HCL 10 MG CAPSULE PO SCH (05:00)
[2023-01-25] MEDS ORDERED: chlordiazePOXIDE HCL 10 MG CAPSULE PO ONE (05:00)
== END 2023-01-23 15:21 | disposition left against medical advice (07) | DRG 770 ==
LOC: YASAS 23:30 → UNDOADMIN 01-21 03:08 → Y3N 01-21 03:08
PROVIDERS: ADMIT Allergy & Immunology; ATTEND Surgery
PROC: HZ2ZZZZ Detoxification Services for Substance Abuse Treatment (ICD-10-PCS; principal; 2023-01-21)
DX: F10.230 Alcohol dependence with withdrawal, uncomplicated (principal); F11.20 Opioid dependence, uncomplicated; F14.20 Cocaine dependence, uncomplicated; F17.210 Nicotine dependence, cigarettes, uncomplicated; F19.24 Other psychoactive substance dependence with psychoactive substance-induced mood disorder; F31.9 Bipolar disorder, unspecified; R56.1 Post traumatic seizures; Z87.820 Personal history of traumatic brain injury; Z86.11 Personal history of tuberculosis
CPT/HCPCS: 36415; 80053; 80307; 85027; 86780; 87635; 87811; Q0162

== ENCOUNTER 2023-02-11 16:03 | Inpatient (IN) | payer OTHER ==
[2023-02-11 17:10] VITALS: BMI 20.5
[2023-02-11] MEDS ORDERED: hydrOXYzine PAMOATE 25 MG CAPSULE (FP) PO PRN (18:25)
[2023-02-11] MEDS ORDERED: ACETAMINOPHEN 325 MG TABLET (FP) PO PRN (18:25)
[2023-02-11] MEDS ORDERED: IBUPROFEN 400 MG TABLET (FP) PO PRN (18:25)
[2023-02-11] MEDS ORDERED: POLYETHYLENE GLYCOL (HEALTHYLAX) 3350 17 GM PACKET PO PRN (18:25)
[2023-02-11] MEDS ORDERED: MAGNESIUM HYDROX 2400MG/30ML ORAL SUSPENSION 30 ML CUP PO PRN (18:25)
[2023-02-11] MEDS ORDERED: MAG HYDROX/AL HYDROX/SIMETH 30 ML UNIT-DOSE CUP PO PRN (18:25)
[2023-02-11] MEDS ORDERED: ONDANSETRON *ODT* 4 MG TABLET SL PRN (18:25)
[2023-02-11] MEDS ORDERED: DICYCLOMINE HCL 10 MG CAPSULE PO PRN (18:25)
[2023-02-11] MEDS ORDERED: NALOXONE HCL 0.4 MG/ML VIAL IM PRN (18:25)
[2023-02-11] MEDS ORDERED: BENZONATATE 200 MG CAPSULE PO PRN (18:25)
[2023-02-11] MEDS ORDERED: NALOXONE HCL (KLOXXADO) 8 MG SPRAY NS PRN (18:25)
[2023-02-11] MEDS ORDERED: BENZOCAINE/MENTHOL (CHLORASEPTIC ) LOZENGE MM PRN (18:25)
[2023-02-11] MEDS ORDERED: guaiFENesin 600 MG TABLET.ER (FP) PO PRN (18:25)
[2023-02-11] MEDS ORDERED: LOPERAMIDE HCL 2 MG CAPSULE PO PRN (18:25)
[2023-02-11] MEDS ORDERED: IBUPROFEN 600 MG TABLET (FP) PO PRN (18:25)
[2023-02-11] MEDS ORDERED: BISMUTH SUBSALICYLATE 524 MG/30 ML PO PRN (18:25)
[2023-02-11] MEDS: diazePAM 5 MG TABLET PO SCH (22:43)
[2023-02-11] MEDS: levETIRAcetam 500 MG TABLET (FP) PO SCH (22:43)
[2023-02-11] MEDS: THIAMINE HCL 100 MG TABLET (FP) PO SCH (22:43)
[2023-02-11] MEDS: MELATONIN 5 MG TABLETS PO SCH (22:44)
[2023-02-12] MEDS: diazePAM 5 MG TABLET PO SCH ×4 (05:31→22:32)
[2023-02-12] MEDS ORDERED: levETIRAcetam 500 MG TABLET (FP) PO SCH (10:00)
[2023-02-12] MEDS: METHOCARBAMOL 500 MG TABLET PO PRN (10:23)
[2023-02-12] MEDS: levETIRAcetam 500 MG TABLET (FP) PO SCH ×2 (10:23→22:31)
[2023-02-12] MEDS: PRENATAL VITAMINS W/ FOLIC ACID TABLET (FP) PO SCH (10:23)
[2023-02-12] MEDS: THIAMINE HCL 100 MG TABLET (FP) PO SCH (22:31)
[2023-02-12] MEDS: MELATONIN 5 MG TABLETS PO SCH (22:32)
[2023-02-13] MEDS: diazePAM 5 MG TABLET PO SCH ×3 (05:33→22:34)
[2023-02-13] MEDS: methaDONE HCL 10 MG TABLET PO SCH (05:34)
[2023-02-13] MEDS: PRENATAL VITAMINS W/ FOLIC ACID TABLET (FP) PO SCH (09:36)
[2023-02-13] MEDS: levETIRAcetam 500 MG TABLET (FP) PO SCH ×2 (09:37→22:34)
[2023-02-13] MEDS: diazePAM 5 MG TABLET PO PRN (09:37)
[2023-02-13] MEDS: METHOCARBAMOL 500 MG TABLET PO PRN (09:37)
[2023-02-13] MEDS: LISINOPRIL 5 MG TABLET PO SCH (14:41)
[2023-02-13] MEDS: THIAMINE HCL 100 MG TABLET (FP) PO SCH (22:34)
[2023-02-13] MEDS: MELATONIN 5 MG TABLETS PO SCH (22:35)
[2023-02-14] MEDS: methaDONE HCL 10 MG TABLET PO SCH (05:54)
[2023-02-14] MEDS: diazePAM 5 MG TABLET PO SCH ×2 (05:58→17:59)
[2023-02-14] MEDS: levETIRAcetam 500 MG TABLET (FP) PO SCH ×2 (09:29→22:05)
[2023-02-14] MEDS: PRENATAL VITAMINS W/ FOLIC ACID TABLET (FP) PO SCH (09:29)
[2023-02-14] MEDS: diazePAM 5 MG TABLET PO PRN (09:29)
[2023-02-14] MEDS: LISINOPRIL 5 MG TABLET PO SCH (09:29)
[2023-02-14 13:43] VITALS: RESP 17
[2023-02-14] MEDS ORDERED: QUEtiapine FUMARATE 100 MG TABLET (FP) PO SCH (22:00)
[2023-02-14] MEDS: METHOCARBAMOL 500 MG TABLET PO PRN (22:05)
[2023-02-14] MEDS: MELATONIN 5 MG TABLETS PO SCH (22:05)
[2023-02-14] MEDS: THIAMINE HCL 100 MG TABLET (FP) PO SCH (22:05)
[2023-02-15] MEDS: methaDONE HCL 10 MG TABLET PO SCH (05:25)
[2023-02-15 05:50] VITALS: BP 122/70; PULSE 74; TEMP 97.8
[2023-02-15] MEDS ORDERED: diazePAM 5 MG TABLET PO ONE (06:00)
[2023-02-15] MEDS: levETIRAcetam 500 MG TABLET (FP) PO SCH (10:38)
[2023-02-15] MEDS: LISINOPRIL 5 MG TABLET PO SCH (10:38)
[2023-02-15] MEDS: PRENATAL VITAMINS W/ FOLIC ACID TABLET (FP) PO SCH (10:38)
== END 2023-02-15 12:15 | disposition home or self-care (01) | DRG 773 ==
LOC: YASAS 16:03 → Y6N 18:53
PROVIDERS: ADMIT Allergy & Immunology; ATTEND Surgery
PROC: HZ2ZZZZ Detoxification Services for Substance Abuse Treatment (ICD-10-PCS; principal; 2023-02-11)
DX: F10.230 Alcohol dependence with withdrawal, uncomplicated (principal); F11.20 Opioid dependence, uncomplicated; F14.20 Cocaine dependence, uncomplicated; F25.9 Schizoaffective disorder, unspecified; F19.282 Other psychoactive substance dependence with psychoactive substance-induced sleep disorder; F43.10 Post-traumatic stress disorder, unspecified; I10 Essential (primary) hypertension; R56.1 Post traumatic seizures; Z87.820 Personal history of traumatic brain injury; Z86.11 Personal history of tuberculosis; Z86.19 Personal history of other infectious and parasitic diseases
CPT/HCPCS: 71046-TC-FY; 87635

== ENCOUNTER 2023-04-04 15:04 | Inpatient (IN) | payer OTHER ==
[2023-04-04 15:21] VITALS: BMI 21.1
[2023-04-04] MEDS ORDERED: MAGNESIUM HYDROX 2400MG/30ML ORAL SUSPENSION 30 ML CUP PO PRN (16:46)
[2023-04-04] MEDS ORDERED: IBUPROFEN 600 MG TABLET (FP) PO PRN (16:46)
[2023-04-04] MEDS ORDERED: ACETAMINOPHEN 325 MG TABLET (FP) PO PRN (16:46)
[2023-04-04] MEDS ORDERED: ONDANSETRON *ODT* 4 MG TABLET SL PRN (16:46)
[2023-04-04] MEDS ORDERED: NALOXONE HCL (KLOXXADO) 8 MG SPRAY NS PRN (16:46)
[2023-04-04] MEDS ORDERED: BISMUTH SUBSALICYLATE 524 MG/30 ML PO PRN (16:46)
[2023-04-04] MEDS ORDERED: DICYCLOMINE HCL 10 MG CAPSULE PO PRN (16:46)
[2023-04-04] MEDS ORDERED: POLYETHYLENE GLYCOL (HEALTHYLAX) 3350 17 GM PACKET PO PRN (16:46)
[2023-04-04] MEDS ORDERED: IBUPROFEN 400 MG TABLET (FP) PO PRN (16:46)
[2023-04-04] MEDS ORDERED: chlordiazePOXIDE HCL 25 MG CAPSULE PO PRN (16:46)
[2023-04-04] MEDS ORDERED: NALOXONE HCL 0.4 MG/ML VIAL IM PRN (16:46)
[2023-04-04] MEDS ORDERED: METHOCARBAMOL 500 MG TABLET PO PRN (16:46)
[2023-04-04] MEDS ORDERED: MAG HYDROX/AL HYDROX/SIMETH 30 ML UNIT-DOSE CUP PO PRN (16:46)
[2023-04-04] MEDS ORDERED: hydrOXYzine PAMOATE 25 MG CAPSULE (FP) PO PRN (16:46)
[2023-04-04] MEDS ORDERED: LOPERAMIDE HCL 2 MG CAPSULE PO PRN (16:46)
[2023-04-04] MEDS ORDERED: guaiFENesin 600 MG TABLET.ER (FP) PO PRN (16:46)
[2023-04-04] MEDS ORDERED: BENZONATATE 200 MG CAPSULE PO PRN (16:46)
[2023-04-04] MEDS ORDERED: BENZOCAINE/MENTHOL (CHLORASEPTIC ) LOZENGE MM PRN (16:46)
[2023-04-04] MEDS ORDERED: chlordiazePOXIDE HCL 25 MG CAPSULE PO SCH (17:00)
[2023-04-04] MEDS: NICOTINE 14 MG/24 HOURS TOPICAL PATCH TD SCH (18:35)
[2023-04-04] MEDS: chlordiazePOXIDE HCL 25 MG CAPSULE PO SCH ×2 (18:36→22:16)
[2023-04-04] MEDS: PRENATAL VITAMINS W/ FOLIC ACID TABLET (FP) PO SCH (18:42)
[2023-04-04] MEDS: MELATONIN 5 MG TABLETS PO SCH (22:14)
[2023-04-04] MEDS: levETIRAcetam 500 MG TABLET (FP) PO SCH (22:14)
[2023-04-04] MEDS: THIAMINE HCL 100 MG TABLET (FP) PO SCH (22:15)
[2023-04-05] MEDS: chlordiazePOXIDE HCL 25 MG CAPSULE PO SCH ×4 (05:21→22:14)
[2023-04-05 08:31] LABS: CHLORIDE 106 mmol/L (98-107); SODIUM 141 mmol/L (136-145)
[2023-04-05 08:34] LABS: HEMATOCRIT 39.7 % (35.4-49); HEMOGLOBIN 13.3 GM/dL (11.7-16.9); MCH 28.9 pg (25.7-33.7); MCHC 33.6 g/dl (32.0-35.9); MEAN CELL VOLUME 86.1 fl (80-96); MEAN PLT VOLUME 7.6 fl (7.5-11.1); PLATELET COUNT 273 10^3/uL (134-434); RBC 4.62 M/mm3 (4.00-5.60); RDW 13.3 % (11.9-15.9); WHITE BLOOD COUNT 5.3 K/mm3 (4.0-10.0)
[2023-04-05 08:38] LABS: ANION GAP 6 mmol/L (4-13); CALCIUM 9.3 mg/dL (8.5-10.1); CO2 29 mmol/L (21-32)
[2023-04-05 08:39] LABS: GLUCOSE,RANDOM 146 mg/dL (74-106)
[2023-04-05 08:41] LABS: BLOOD UREA NITROGEN 19.9 mg/dL (7-18)
[2023-04-05 08:43] LABS: ALBUMIN 2.8 g/dl (3.4-5.0)
[2023-04-05 08:44] LABS: CREATININE 0.9 mg/dL (0.55-1.3)
[2023-04-05 08:45] LABS: SGOT/AST 16 U/L (15-37); SGPT/ALT 22 U/L (13-61)
[2023-04-05 08:46] LABS: ALK PHOS 102 U/L (45-117)
[2023-04-05 08:47] LABS: BILIRUBIN,TOTAL 0.8 mg/dL (0.2-1)
[2023-04-05] MEDS: methaDONE HCL 10 MG TABLET PO SCH (09:08)
[2023-04-05] MEDS: PRENATAL VITAMINS W/ FOLIC ACID TABLET (FP) PO SCH (10:15)
[2023-04-05] MEDS: levETIRAcetam 500 MG TABLET (FP) PO SCH ×2 (10:16→22:14)
[2023-04-05] MEDS: LISINOPRIL 5 MG TABLET PO SCH (10:16)
[2023-04-05] MEDS: NICOTINE 14 MG/24 HOURS TOPICAL PATCH TD SCH (10:18)
[2023-04-05 13:09] LABS: HIV INTERPRETATION NEGATIVE (NEGATIVE)
[2023-04-05] MEDS: LACTULOSE 20 GM/30 ML UDC (FOR ORAL USE ONLY) PO SCH ×2 (14:11→22:14)
[2023-04-05] MEDS: MELATONIN 5 MG TABLETS PO SCH (22:14)
[2023-04-05] MEDS: THIAMINE HCL 100 MG TABLET (FP) PO SCH (22:14)
[2023-04-05] MEDS: QUEtiapine FUMARATE 100 MG TABLET (FP) PO SCH (22:14)
[2023-04-06] MEDS: chlordiazePOXIDE HCL 25 MG CAPSULE PO SCH ×4 (05:40→22:09)
[2023-04-06] MEDS: LACTULOSE 20 GM/30 ML UDC (FOR ORAL USE ONLY) PO SCH ×3 (05:40→22:09)
[2023-04-06] MEDS: methaDONE HCL 10 MG TABLET PO SCH (05:41)
[2023-04-06] MEDS: levETIRAcetam 500 MG TABLET (FP) PO SCH ×2 (10:05→22:09)
[2023-04-06] MEDS: PRENATAL VITAMINS W/ FOLIC ACID TABLET (FP) PO SCH (10:05)
[2023-04-06] MEDS: LISINOPRIL 5 MG TABLET PO SCH (10:05)
[2023-04-06] MEDS: NICOTINE 14 MG/24 HOURS TOPICAL PATCH TD SCH (10:07)
[2023-04-06] MEDS: THIAMINE HCL 100 MG TABLET (FP) PO SCH (22:09)
[2023-04-06] MEDS: MELATONIN 5 MG TABLETS PO SCH (22:09)
[2023-04-06] MEDS: QUEtiapine FUMARATE 100 MG TABLET (FP) PO SCH (22:09)
[2023-04-07] MEDS ORDERED: chlordiazePOXIDE HCL 10 MG CAPSULE PO PRN
[2023-04-07] MEDS: LACTULOSE 20 GM/30 ML UDC (FOR ORAL USE ONLY) PO SCH ×2 (05:30→13:19)
[2023-04-07] MEDS: chlordiazePOXIDE HCL 10 MG CAPSULE PO SCH ×2 (05:31→10:19)
[2023-04-07] MEDS: methaDONE HCL 10 MG TABLET PO SCH (05:31)
[2023-04-07] MEDS: PRENATAL VITAMINS W/ FOLIC ACID TABLET (FP) PO SCH (10:19)
[2023-04-07] MEDS: levETIRAcetam 500 MG TABLET (FP) PO SCH (10:19)
[2023-04-07] MEDS: LISINOPRIL 5 MG TABLET PO SCH (10:19)
[2023-04-07] MEDS: NICOTINE 14 MG/24 HOURS TOPICAL PATCH TD SCH (10:21)
[2023-04-07 13:01] VITALS: BP 118/63; PULSE 87; RESP 18; TEMP 97.8
[2023-04-08] MEDS ORDERED: chlordiazePOXIDE HCL 10 MG CAPSULE PO SCH (05:00)
[2023-04-09] MEDS ORDERED: chlordiazePOXIDE HCL 10 MG CAPSULE PO ONE (05:00)
== END 2023-04-07 12:55 | disposition home or self-care (01) | DRG 773 ==
LOC: YASAS 15:04 → Y3N 18:00
PROVIDERS: ADMIT Allergy & Immunology; ATTEND Surgery
PROC: HZ2ZZZZ Detoxification Services for Substance Abuse Treatment (ICD-10-PCS; principal; 2023-04-04)
DX: F10.230 Alcohol dependence with withdrawal, uncomplicated (principal); F14.20 Cocaine dependence, uncomplicated; F11.20 Opioid dependence, uncomplicated; F17.210 Nicotine dependence, cigarettes, uncomplicated; F25.9 Schizoaffective disorder, unspecified; G40.909 Epilepsy, unspecified, not intractable, without status epilepticus; R79.89 Other specified abnormal findings of blood chemistry; R73.9 Hyperglycemia, unspecified; Z86.11 Personal history of tuberculosis; Z87.820 Personal history of traumatic brain injury; Z59.01 Sheltered homelessness
CPT/HCPCS: 36415; 80053; 80177; 80307; 82140; 82947; 82962; 83036; 85027; 86780; 87389; 87635; 93005; 93010

== ENCOUNTER 2023-11-01 13:25 | Inpatient (IN) | payer OTHER ==
[2023-11-01 15:23] VITALS: BMI 21.9
[2023-11-01] MEDS ORDERED: cloNIDine HCL 0.1 MG TABLET PO PRN (15:37)
[2023-11-01] MEDS ORDERED: MAGNESIUM HYDROX 2400MG/30ML ORAL SUSPENSION 30 ML CUP PO PRN (15:43)
[2023-11-01] MEDS ORDERED: BISMUTH SUBSALICYLATE 262 MG/15 ML BTL PO PRN (15:43)
[2023-11-01] MEDS ORDERED: MAG HYDROX/AL HYDROX/SIMETH 30 ML UNIT-DOSE CUP PO PRN (15:43)
[2023-11-01] MEDS ORDERED: NICOTINE POLACRILEX 2 MG GUM BUC PRN (15:43)
[2023-11-01] MEDS ORDERED: POLYETHYLENE GLYCOL (HEALTHYLAX) 3350 17 GM PACKET PO PRN (15:43)
[2023-11-01] MEDS ORDERED: IBUPROFEN 600 MG TABLET (FP) PO PRN (15:43)
[2023-11-01] MEDS ORDERED: IBUPROFEN 400 MG TABLET (FP) PO PRN (15:43)
[2023-11-01] MEDS ORDERED: NALOXONE HCL 0.4 MG/ML VIAL IM PRN (15:43)
[2023-11-01] MEDS ORDERED: ACETAMINOPHEN 325 MG TABLET (FP) PO PRN (15:43)
[2023-11-01] MEDS ORDERED: guaiFENesin 600 MG TABLET.ER (FP) PO PRN (15:43)
[2023-11-01] MEDS ORDERED: ONDANSETRON *ODT* 4 MG TABLET SL PRN (15:43)
[2023-11-01] MEDS ORDERED: BENZONATATE 200 MG CAPSULE PO PRN (15:43)
[2023-11-01] MEDS ORDERED: BENZOCAINE/MENTHOL (CHLORASEPTIC ) LOZENGE MM PRN (15:43)
[2023-11-01] MEDS ORDERED: NICOTINE POLACRILEX 2 MG LOZENGE BC PRN (15:43)
[2023-11-01] MEDS ORDERED: LOPERAMIDE HCL 2 MG CAPSULE PO PRN (15:43)
[2023-11-01] MEDS ORDERED: P-EPHED 60MG/TRIPROLIDI 2.5MG TABLET PO PRN (15:43)
[2023-11-01] MEDS ORDERED: NALOXONE (NARCAN) HCL 4 MG/0.1 ML SPRAY NS PRN (15:43)
[2023-11-01] MEDS ORDERED: methaDONE HCL 10 MG TABLET (FOR DETOX USE ONLY) ONE (15:58)
[2023-11-01] MEDS ORDERED: METHOCARBAMOL 500 MG TABLET ONE (15:59)
[2023-11-01] MEDS: methaDONE HCL 10 MG TABLET (FOR DETOX USE ONLY) PO ONE (16:07)
[2023-11-01] MEDS: METHOCARBAMOL 500 MG TABLET PO PRN (16:07)
[2023-11-01] MEDS: THIAMINE 100 MG TABLET PO SCH (22:55)
[2023-11-01] MEDS: levETIRAcetam 500 MG TABLET (FP) PO SCH (22:55)
[2023-11-01] MEDS: MELATONIN 5 MG TABLETS PO SCH (22:55)
[2023-11-02] MEDS: PRENATAL VITAMINS W/ FOLIC ACID TABLET (FP) PO SCH (09:51)
[2023-11-02] MEDS: diazePAM 5 MG TABLET PO SCH (10:48)
[2023-11-02 11:33] LABS: POTASSIUM 4.4 mmol/L (3.5-5.1)
[2023-11-02 11:35] LABS: ALBUMIN 3.1 g/dl (3.4-5.0); BLOOD UREA NITROGEN 13.6 mg/dL (7-18); CALCIUM 9.3 mg/dL (8.5-10.1)
[2023-11-02 11:39] LABS: CREATININE 0.7 mg/dL (0.55-1.3)
[2023-11-02 11:40] LABS: BILIRUBIN,TOTAL 0.2 mg/dL (0.2-1); TOT PROT 6.9 g/dl (6.4-8.2)
[2023-11-02 11:47] LABS: HEMATOCRIT 39.6 % (35.4-49); HEMOGLOBIN 13.2 GM/dL (11.7-16.9); MCH 27.4 pg (25.7-33.7); MCHC 33.4 g/dl (32.0-35.9); MEAN CELL VOLUME 82.1 fl (80-96); PLATELET COUNT 197 10^3/uL (134-434); RBC 4.82 M/mm3 (4.00-5.60); WHITE BLOOD COUNT 4.1 K/mm3 (4.0-10.0)
[2023-11-02] MEDS: DICYCLOMINE HCL 10 MG CAPSULE PO PRN (17:15)
[2023-11-02] MEDS: QUEtiapine FUMARATE 100 MG TABLET (FP) PO SCH (22:11)
[2023-11-03] MEDS: methaDONE HCL 10 MG TABLET (FOR DETOX USE ONLY) PO ONE (10:11)
[2023-11-03] MEDS: diazePAM 5 MG TABLET PO PRN (20:07)
[2023-11-04] MEDS: diazePAM 5 MG TABLET PO SCH (05:41)
[2023-11-05] MEDS: diazePAM 5 MG TABLET PO SCH (05:47)
[2023-11-05 09:47] VITALS: RESP 18
[2023-11-05] MEDS: methaDONE HCL 10 MG TABLET (FOR DETOX USE ONLY) PO ONE (09:57)
[2023-11-05 13:00] VITALS: BP 146/87; PULSE 70; TEMP 97.8
[2023-11-06] MEDS ORDERED: diazePAM 5 MG TABLET PO ONE (06:00)
== END 2023-11-05 13:15 | disposition home or self-care (01) | DRG 773 ==
LOC: YASAS 13:25 → Y3N 15:59
PROVIDERS: ADMIT Allergy & Immunology; ATTEND Surgery
PROC: HZ2ZZZZ Detoxification Services for Substance Abuse Treatment (ICD-10-PCS; principal; 2023-11-01)
DX: F11.23 Opioid dependence with withdrawal (principal); F14.20 Cocaine dependence, uncomplicated; F17.210 Nicotine dependence, cigarettes, uncomplicated; F25.9 Schizoaffective disorder, unspecified; G40.909 Epilepsy, unspecified, not intractable, without status epilepticus; B18.2 Chronic viral hepatitis C; Z86.11 Personal history of tuberculosis; Z56.0 Unemployment, unspecified; Z59.00 Homelessness unspecified
CPT/HCPCS: 36415; 80053; 80305; 85027; 86780

== ENCOUNTER 2024-03-14 21:56 | Inpatient (IN) | payer OTHER ==
[2024-03-14 22:20] VITALS: BMI 23.7
[2024-03-14] MEDS ORDERED: IBUPROFEN 400 MG TABLET (FP) PO PRN (23:01)
[2024-03-14] MEDS ORDERED: ONDANSETRON *ODT* 4 MG TABLET SL PRN (23:01)
[2024-03-14] MEDS ORDERED: ACETAMINOPHEN 325 MG TABLET (FP) PO PRN (23:01)
[2024-03-14] MEDS ORDERED: NICOTINE POLACRILEX 2 MG GUM BUC PRN (23:01)
[2024-03-14] MEDS ORDERED: P-EPHED 60MG/TRIPROLIDI 2.5MG TABLET PO PRN (23:01)
[2024-03-14] MEDS ORDERED: MAG HYDROX/AL HYDROX/SIMETH 30 ML UNIT-DOSE CUP PO PRN (23:01)
[2024-03-14] MEDS ORDERED: POLYETHYLENE GLYCOL (HEALTHYLAX) 3350 17 GM PACKET PO PRN (23:01)
[2024-03-14] MEDS ORDERED: DICYCLOMINE HCL 10 MG CAPSULE PO PRN (23:01)
[2024-03-14] MEDS ORDERED: IBUPROFEN 600 MG TABLET (FP) PO PRN (23:01)
[2024-03-14] MEDS ORDERED: NICOTINE POLACRILEX 2 MG LOZENGE BC PRN (23:01)
[2024-03-14] MEDS ORDERED: BISMUTH SUBSALICYLATE 524 MG/30 ML PO PRN (23:01)
[2024-03-14] MEDS ORDERED: LOPERAMIDE HCL 2 MG CAPSULE PO PRN (23:01)
[2024-03-14] MEDS ORDERED: NALOXONE (NARCAN) HCL 4 MG/0.1 ML SPRAY NS PRN (23:01)
[2024-03-14] MEDS ORDERED: guaiFENesin 600 MG TABLET.ER (FP) PO PRN (23:01)
[2024-03-14] MEDS ORDERED: MAGNESIUM HYDROX 2400MG/30ML ORAL SUSPENSION 30 ML CUP PO PRN (23:01)
[2024-03-14] MEDS ORDERED: BENZONATATE 200 MG CAPSULE PO PRN (23:01)
[2024-03-15] MEDS ORDERED: levETIRAcetam 500 MG TABLET (FP) PO ONE ×2 (00:56→10:04)
[2024-03-15] MEDS: levETIRAcetam 500 MG TABLET (FP) PO SCH (00:57)
[2024-03-15] MEDS: QUEtiapine FUMARATE 50 MG TABLET PO ONE (01:22)
[2024-03-15] MEDS ORDERED: diazePAM 5 MG TABLET PO PRN (08:35)
[2024-03-15] MEDS ORDERED: diazePAM 5 MG TABLET ONE (10:04)
[2024-03-15] MEDS ORDERED: PRENATAL VITAMINS W/ FOLIC ACID TABLET (FP) PO ONE (10:05)
[2024-03-15] MEDS: diazePAM 5 MG TABLET PO SCH (10:08)
[2024-03-15] MEDS: PRENATAL VITAMINS W/ FOLIC ACID TABLET (FP) PO SCH (10:08)
[2024-03-15 12:42] LABS: HEMATOCRIT 39.5 % (35.4-49); HEMOGLOBIN 13.2 GM/dL (11.7-16.9); MCH 28.4 pg (25.7-33.7); MCHC 33.5 g/dl (32.0-35.9); MEAN CELL VOLUME 84.7 fl (80-96); MEAN PLT VOLUME 7.7 fl (7.5-11.1); PLATELET COUNT 210 10^3/uL (134-434); RBC 4.66 M/mm3 (4.00-5.60); RDW 14.8 % (11.9-15.9)
[2024-03-15 12:50] LABS: CHLORIDE 108 mmol/L (98-107); POTASSIUM 4.1 mmol/L (3.5-5.1); SODIUM 141 mmol/L (136-145)
[2024-03-15 12:55] LABS: GLUCOSE,RANDOM 120 mg/dL (74-106)
[2024-03-15 12:56] LABS: CALCIUM 9.1 mg/dL (8.5-10.1)
[2024-03-15 12:57] LABS: ALBUMIN 3.3 g/dl (3.4-5.0); ANION GAP 6 mmol/L (4-13); BLOOD UREA NITROGEN 20.5 mg/dL (7-18); CO2 27 mmol/L (21-32)
[2024-03-15 13:00] LABS: CREATININE 0.9 mg/dL (0.55-1.3); SGPT/ALT 47 U/L (13-61)
[2024-03-15 13:01] LABS: ALK PHOS 113 U/L (45-117); SGOT/AST 36 U/L (15-37)
[2024-03-15 13:02] LABS: BILIRUBIN,TOTAL 0.3 mg/dL (0.2-1)
[2024-03-15] MEDS: METHOCARBAMOL 500 MG TABLET PO PRN (15:37)
[2024-03-15] MEDS: hydrOXYzine PAMOATE 25 MG CAPSULE (FP) PO PRN (15:37)
[2024-03-15] MEDS ORDERED: methaDONE HCL 10 MG TABLET (FOR DETOX USE ONLY) PO PRN (18:20)
[2024-03-15] MEDS: methaDONE HCL 10 MG TABLET (FOR DETOX USE ONLY) PO ONE (18:30)
[2024-03-15] MEDS: MELATONIN 5 MG TABLETS PO SCH (22:48)
[2024-03-15] MEDS: THIAMINE 100 MG TABLET PO SCH (22:48)
[2024-03-16] MEDS: cloNIDine HCL 0.1 MG TABLET PO PRN (13:45)
[2024-03-17] MEDS: diazePAM 5 MG TABLET PO SCH (05:30)
[2024-03-17] MEDS: methaDONE HCL 10 MG TABLET (FOR DETOX USE ONLY) PO ONE (09:29)
[2024-03-18] MEDS: diazePAM 5 MG TABLET PO SCH (05:39)
[2024-03-19] MEDS: diazePAM 5 MG TABLET PO ONE (06:29)
[2024-03-19] MEDS: methaDONE HCL 10 MG TABLET (FOR DETOX USE ONLY) PO ONE (10:58)
[2024-03-19] MEDS: NALOXONE (NYS OPIOID OVERDOSE PROGRAM) 4 MG/0.1 ML SPRAY NS SCH (14:45)
[2024-03-20] MEDS: BENZOCAINE/MENTHOL (CHLORASEPTIC ) LOZENGE MM PRN (10:47)
[2024-03-20] MEDS: QUEtiapine FUMARATE 100 MG TABLET (FP) PO SCH (21:31)
[2024-03-21 06:42] VITALS: RESP 16
[2024-03-21 09:21] VITALS: BP 128/77; PULSE 100; TEMP 97.5
== END 2024-03-21 12:57 | disposition home or self-care (01) | DRG 773 ==
LOC: YASAS 21:56 → Y6N 03-15 11:29
PROVIDERS: ADMIT Allergy & Immunology; ATTEND Surgery
PROC: HZ2ZZZZ Detoxification Services for Substance Abuse Treatment (ICD-10-PCS; principal; 2024-03-15)
DX: F11.23 Opioid dependence with withdrawal (principal); F10.230 Alcohol dependence with withdrawal, uncomplicated; F14.20 Cocaine dependence, uncomplicated; F17.210 Nicotine dependence, cigarettes, uncomplicated; F19.282 Other psychoactive substance dependence with psychoactive substance-induced sleep disorder; F31.9 Bipolar disorder, unspecified; R56.1 Post traumatic seizures; B18.2 Chronic viral hepatitis C; K00.0 Anodontia; R76.11 Nonspecific reaction to tuberculin skin test without active tuberculosis; Z87.820 Personal history of traumatic brain injury; Z59.02 Unsheltered homelessness
CPT/HCPCS: 36415; 80053; 80307; 85027; 86780; 87811; 93005; 93010

== ENCOUNTER 2024-04-09 13:23 | Inpatient (IN) | payer OTHER ==
[2024-04-09] MEDS ORDERED: IBUPROFEN 600 MG TABLET (FP) PO PRN (14:45)
[2024-04-09] MEDS ORDERED: P-EPHED 60MG/TRIPROLIDI 2.5MG TABLET PO PRN (14:45)
[2024-04-09] MEDS ORDERED: IBUPROFEN 400 MG TABLET (FP) PO PRN (14:45)
[2024-04-09] MEDS ORDERED: POLYETHYLENE GLYCOL (HEALTHYLAX) 3350 17 GM PACKET PO PRN (14:45)
[2024-04-09] MEDS ORDERED: NALOXONE (NARCAN) HCL 4 MG/0.1 ML SPRAY NS PRN (14:45)
[2024-04-09] MEDS ORDERED: BISMUTH SUBSALICYLATE 262 MG/15 ML BTL PO PRN (14:45)
[2024-04-09] MEDS ORDERED: NICOTINE POLACRILEX 2 MG GUM BUC PRN (14:45)
[2024-04-09] MEDS ORDERED: MAGNESIUM HYDROX 2400MG/30ML ORAL SUSPENSION 30 ML CUP PO PRN (14:45)
[2024-04-09] MEDS ORDERED: LOPERAMIDE HCL 2 MG CAPSULE PO PRN (14:45)
[2024-04-09] MEDS ORDERED: BENZONATATE 200 MG CAPSULE PO PRN (14:45)
[2024-04-09] MEDS ORDERED: DOCUSATE SODIUM 100 MG CAPSULE (FP) PO PRN (14:45)
[2024-04-09] MEDS ORDERED: guaiFENesin 600 MG TABLET.ER (FP) PO PRN (14:45)
[2024-04-09] MEDS ORDERED: ACETAMINOPHEN 325 MG TABLET (FP) PO PRN (14:45)
[2024-04-09] MEDS ORDERED: NICOTINE POLACRILEX 2 MG LOZENGE BC PRN (14:45)
[2024-04-09] MEDS ORDERED: ONDANSETRON *ODT* 4 MG TABLET SL PRN (14:45)
[2024-04-09] MEDS ORDERED: MAG HYDROX/AL HYDROX/SIMETH 30 ML UNIT-DOSE CUP PO PRN (14:45)
[2024-04-09] MEDS ORDERED: BENZOCAINE/MENTHOL (CHLORASEPTIC ) LOZENGE MM PRN (14:45)
[2024-04-09] MEDS ORDERED: DICYCLOMINE HCL 10 MG CAPSULE PO PRN (14:45)
[2024-04-09 15:02] VITALS: BMI 23.7
[2024-04-09] MEDS ORDERED: methaDONE HCL 10 MG TABLET (FOR DETOX USE ONLY) PO PRN (15:11)
[2024-04-09] MEDS ORDERED: cloNIDine HCL 0.1 MG TABLET PO PRN (15:11)
[2024-04-09] MEDS ORDERED: levETIRAcetam 500 MG TABLET (FP) PO ONE (17:08)
[2024-04-09] MEDS: levETIRAcetam 500 MG TABLET (FP) PO SCH (17:13)
[2024-04-09] MEDS: METHOCARBAMOL 500 MG TABLET PO PRN (22:29)
[2024-04-09] MEDS: THIAMINE 100 MG TABLET PO SCH (22:29)
[2024-04-09] MEDS: MELATONIN 5 MG TABLETS PO SCH (22:29)
[2024-04-10] MEDS: methaDONE HCL 10 MG TABLET (FOR DETOX USE ONLY) PO ONE (09:11)
[2024-04-10] MEDS: PRENATAL VITAMINS W/ FOLIC ACID TABLET (FP) PO SCH (09:12)
[2024-04-10] MEDS: diazePAM 5 MG TABLET PO PRN (22:42)
[2024-04-11] MEDS ORDERED: hydrOXYzine PAMOATE 25 MG CAPSULE (FP) PO PRN (11:31)
[2024-04-11] MEDS ORDERED: diazePAM 5 MG TABLET PO PRN (11:36)
[2024-04-11] MEDS: QUEtiapine FUMARATE 100 MG TABLET (FP) PO SCH (21:46)
[2024-04-11] MEDS: BUPRENORPHINE/NALOXONE 0.5 MG/0.125 MG FILM SL SCH (21:46)
[2024-04-12] MEDS: methaDONE HCL 10 MG TABLET (FOR DETOX USE ONLY) PO ONE (09:46)
[2024-04-12] MEDS: BUPRENORPHINE/NALOXONE 2 MG/0.5 MG FILM PACKET SL SCH (09:48)
[2024-04-12] MEDS ORDERED: BUPRENORPHINE/NALOXONE 0.5 MG/0.125 MG FILM SL SCH (10:00)
[2024-04-13] MEDS: BUPRENORPHINE/NALOXONE 4 MG/1 MG FILM PACKET SL SCH (09:30)
[2024-04-13] MEDS ORDERED: BUPRENORPHINE/NALOXONE 2 MG/0.5 MG FILM PACKET SL SCH (10:00)
[2024-04-14] MEDS: BUPRENORPHINE/NALOXONE 8 MG/2 MG FILM PACKET SL SCH (09:29)
[2024-04-14] MEDS: methaDONE HCL 10 MG TABLET (FOR DETOX USE ONLY) PO ONE (09:30)
[2024-04-14] MEDS ORDERED: BUPRENORPHINE/NALOXONE 4 MG/1 MG FILM PACKET SL SCH (10:00)
[2024-04-14] MEDS: NALOXONE (NYS OPIOID OVERDOSE PROGRAM) 4 MG/0.1 ML SPRAY NS SCH (10:45)
[2024-04-15] MEDS ORDERED: levETIRAcetam 250 MG TABLET PO ONE (09:11)
[2024-04-15] MEDS: BUPRENORPHINE/NALOXONE 8 MG/2 MG FILM PACKET SL SCH (09:12)
[2024-04-15 09:30] VITALS: BP 115/64; PULSE 67; RESP 16; TEMP 97.6
[2024-04-15] MEDS ORDERED: BUPRENORPHINE/NALOXONE 8 MG/2 MG FILM PACKET SL SCH (10:00)
[2024-04-16] MEDS ORDERED: BUPRENORPHINE/NALOXONE 8 MG/2 MG FILM PACKET SL SCH (10:00)
== END 2024-04-15 13:00 | disposition home or self-care (01) | DRG 773 ==
LOC: YASAS 13:23 → Y6N 16:50
PROVIDERS: ADMIT Allergy & Immunology; ATTEND Allergy & Immunology
PROC: HZ2ZZZZ Detoxification Services for Substance Abuse Treatment (ICD-10-PCS; principal; 2024-04-09)
DX: F11.23 Opioid dependence with withdrawal (principal); F10.230 Alcohol dependence with withdrawal, uncomplicated; F14.20 Cocaine dependence, uncomplicated; F17.210 Nicotine dependence, cigarettes, uncomplicated; F31.9 Bipolar disorder, unspecified; F19.282 Other psychoactive substance dependence with psychoactive substance-induced sleep disorder; F43.10 Post-traumatic stress disorder, unspecified; G40.909 Epilepsy, unspecified, not intractable, without status epilepticus; B18.2 Chronic viral hepatitis C; Z86.11 Personal history of tuberculosis; Z87.820 Personal history of traumatic brain injury
CPT/HCPCS: 36415; 80307

== ENCOUNTER 2024-06-10 09:34 | Inpatient (IN) | payer OTHER ==
[2024-06-10 10:00] VITALS: BMI 23.7
[2024-06-10] MEDS ORDERED: IBUPROFEN 600 MG TABLET (FP) PO PRN (10:29)
[2024-06-10] MEDS ORDERED: BENZOCAINE/MENTHOL (CHLORASEPTIC ) LOZENGE MM PRN (10:29)
[2024-06-10] MEDS ORDERED: MAG HYDROX/AL HYDROX/SIMETH 30 ML UNIT-DOSE CUP PO PRN (10:29)
[2024-06-10] MEDS ORDERED: LOPERAMIDE HCL 2 MG CAPSULE PO PRN (10:29)
[2024-06-10] MEDS ORDERED: diazePAM 5 MG TABLET PO PRN (10:29)
[2024-06-10] MEDS ORDERED: ACETAMINOPHEN 325 MG TABLET (FP) PO PRN (10:29)
[2024-06-10] MEDS ORDERED: IBUPROFEN 400 MG TABLET (FP) PO PRN (10:29)
[2024-06-10] MEDS ORDERED: BISMUTH SUBSALICYLATE 262 MG/15 ML BTL PO PRN (10:29)
[2024-06-10] MEDS ORDERED: guaiFENesin 600 MG TABLET.ER (FP) PO PRN (10:29)
[2024-06-10] MEDS ORDERED: methaDONE HCL 10 MG TABLET (FOR DETOX USE ONLY) PO PRN (10:29)
[2024-06-10] MEDS ORDERED: MAGNESIUM HYDROX 2400MG/30ML ORAL SUSPENSION 30 ML CUP PO PRN (10:29)
[2024-06-10] MEDS ORDERED: DICYCLOMINE HCL 10 MG CAPSULE PO PRN (10:29)
[2024-06-10] MEDS ORDERED: ONDANSETRON *ODT* 4 MG TABLET SL PRN (10:29)
[2024-06-10] MEDS ORDERED: NALOXONE (NARCAN) HCL 4 MG/0.1 ML SPRAY NS PRN (10:29)
[2024-06-10] MEDS ORDERED: POLYETHYLENE GLYCOL (HEALTHYLAX) 3350 17 GM PACKET PO PRN (10:29)
[2024-06-10] MEDS ORDERED: hydrOXYzine PAMOATE 25 MG CAPSULE (FP) PO PRN (10:29)
[2024-06-10] MEDS ORDERED: BENZONATATE 200 MG CAPSULE PO PRN (10:29)
[2024-06-10] MEDS: diazePAM 5 MG TABLET PO SCH (11:00)
[2024-06-10] MEDS ORDERED: methaDONE HCL 10 MG TABLET (FOR DETOX USE ONLY) PO ONE (11:15)
[2024-06-10] MEDS ORDERED: BUPRENORPHINE/NALOXONE 0.5 MG/0.125 MG FILM SL ONE (11:20)
[2024-06-10] MEDS: amLODIPine BESYLATE 5 MG TABLET (FP) PO SCH (11:40)
[2024-06-10] MEDS: SULFAMETHOXAZOLE/TRIMETHOPRIM 800MG/160MG D.S. TABLET PO SCH (11:40)
[2024-06-10] MEDS: methaDONE HCL 10 MG TABLET (FOR DETOX USE ONLY) PO ONE (13:06)
[2024-06-10] MEDS: BUPRENORPHINE/NALOXONE 0.5 MG/0.125 MG FILM SL ONE ×2 (13:09→22:57)
[2024-06-10] MEDS: cloNIDine HCL 0.1 MG TABLET PO SCH (14:28)
[2024-06-10] MEDS: ACAMPROSATE CALCIUM 333 MG TABLET.DR PO SCH (14:28)
[2024-06-10 17:00] LABS: HIV INTERPRETATION NEGATIVE (NEGATIVE)
[2024-06-10] MEDS: BACITRACIN 0.9 GM PACKET TP SCH (17:35)
[2024-06-10] MEDS: QUEtiapine FUMARATE 100 MG TABLET (FP) PO SCH (22:27)
[2024-06-10] MEDS: MELATONIN 5 MG TABLETS PO SCH (22:27)
[2024-06-10] MEDS: MIRTAZAPINE 15 MG TABLET (FP) PO SCH (22:27)
[2024-06-10] MEDS: THIAMINE 100 MG TABLET PO SCH (22:28)
[2024-06-10] MEDS: levETIRAcetam 500 MG TABLET (FP) PO SCH (22:28)
[2024-06-11] MEDS: METHOCARBAMOL 500 MG TABLET PO PRN (10:48)
[2024-06-11] MEDS: PRENATAL VITAMINS W/ FOLIC ACID TABLET (FP) PO SCH (10:49)
[2024-06-11] MEDS: BUPRENORPHINE/NALOXONE 0.5 MG/0.125 MG FILM SL SCH (10:52)
[2024-06-11 11:36] LABS: POTASSIUM 4.3 mmol/L (3.5-5.1)
[2024-06-11 11:44] LABS: CALCIUM 9.3 mg/dL (8.5-10.1)
[2024-06-11 11:45] LABS: ALBUMIN 2.8 g/dl (3.4-5.0); BLOOD UREA NITROGEN 18.9 mg/dL (7-18)
[2024-06-11 11:48] LABS: CREATININE 1.3 mg/dL (0.55-1.3); TOT PROT 7.5 g/dl (6.4-8.2)
[2024-06-11 11:49] LABS: BILIRUBIN,TOTAL 0.6 mg/dL (0.2-1)
[2024-06-11 12:13] LABS: HEMATOCRIT 35.1 % (35.4-49); HEMOGLOBIN 11.8 GM/dL (11.7-16.9); MCH 29.5 pg (25.7-33.7); MCHC 33.7 g/dl (32.0-35.9); MEAN CELL VOLUME 87.5 fl (80-96); MEAN PLT VOLUME 6.8 fl (7.5-11.1); PLATELET COUNT 471 10^3/uL (134-434); RBC 4.01 M/mm3 (4.00-5.60); RDW 15.5 % (11.9-15.9); WHITE BLOOD COUNT 5.7 K/mm3 (4.0-10.0)
[2024-06-12] MEDS: diazePAM 5 MG TABLET PO SCH (05:33)
[2024-06-12] MEDS: methaDONE HCL 10 MG TABLET (FOR DETOX USE ONLY) PO ONE (10:16)
[2024-06-12] MEDS: BUPRENORPHINE/NALOXONE 2 MG/0.5 MG FILM PACKET SL SCH (10:17)
[2024-06-13] MEDS: diazePAM 5 MG TABLET PO SCH (05:36)
[2024-06-13] MEDS: BUPRENORPHINE/NALOXONE 4 MG/1 MG FILM PACKET SL SCH (10:55)
[2024-06-13] MEDS ORDERED: methaDONE HCL 10 MG TABLET (FOR DETOX USE ONLY) ONE (11:24)
[2024-06-14] MEDS: diazePAM 5 MG TABLET PO ONE (05:46)
[2024-06-14] MEDS: BUPRENORPHINE/NALOXONE 8 MG/2 MG FILM PACKET SL SCH (10:49)
[2024-06-14] MEDS: methaDONE HCL 10 MG TABLET (FOR DETOX USE ONLY) PO ONE (10:49)
[2024-06-15 08:58] VITALS: BP 111/58; PULSE 104; RESP 17; TEMP 96.9
[2024-06-15] MEDS: BUPRENORPHINE/NALOXONE 8 MG/2 MG FILM PACKET SL SCH (09:20)
== END 2024-06-15 11:22 | disposition home or self-care (01) | DRG 773 ==
LOC: YASAS 09:34 → Y3N 10:42
PROVIDERS: ADMIT Allergy & Immunology; ATTEND Allergy & Immunology
PROC: HZ2ZZZZ Detoxification Services for Substance Abuse Treatment (ICD-10-PCS; principal; 2024-06-10)
DX: F11.23 Opioid dependence with withdrawal (principal); F10.230 Alcohol dependence with withdrawal, uncomplicated; F14.20 Cocaine dependence, uncomplicated; F17.210 Nicotine dependence, cigarettes, uncomplicated; F19.282 Other psychoactive substance dependence with psychoactive substance-induced sleep disorder; F31.9 Bipolar disorder, unspecified; F43.10 Post-traumatic stress disorder, unspecified; I10 Essential (primary) hypertension; L02.414 Cutaneous abscess of left upper limb; R56.1 Post traumatic seizures; Z86.19 Personal history of other infectious and parasitic diseases; Z86.11 Personal history of tuberculosis; Z87.820 Personal history of traumatic brain injury
CPT/HCPCS: 36415; 80053; 80305; 80307; 85027; 86480; 86780; 86803; 87389; 87522; 93005; 93010